=== PATIENT | male | born 1945 | race Caucasian/White ===

== ENCOUNTER 2021-04-07 08:50 | Outpatient (REF) | payer MEDICARE, SELFPAY ==
[2021-04-07 11:10] LABS: MANUAL DIFF FLAG NO
[2021-04-07 11:28] LABS: Basophils Absolute Auto 0.1 X10*3/uL (0.0-0.2); Basophils Percent Auto 0.6 % (0-2); Eosinophils Absolute Auto 0.2 X10*3/uL (0.0-0.4); Hemoglobin 15.1 g/dl (14.0-18.0); Imm Gran Abs Auto 0.04 X10*3/uL (0.00-0.03); Imm Gran Pct Auto 0.5 % (0.0-0.4); Lymphocytes Absolute Auto 1.8 X10*3/uL (1.2-4.9); Lymphocytes Percent Auto 23.3 % (20-40); Mean Corpuscular HGB Conc 33.6 g/dl (31.0-36.0); Mean Corpuscular Hemoglobin 31.9 pg (27.0-33.0); Mean Corpuscular Volume 95.1 fL (80-98); Mean Platelet Volume 9.4 fL (9.4-12.4); Monocytes Absolute Auto 0.6 X10*3/uL (0.1-1.2); Monocytes Percent Auto 7.3 % (2-11); Neutrophils Absolute Auto 5.2 X10*3/uL (2.0-8.3); Neutrophils Percent Auto 66.3 % (45-73); Platelet Count 173 X10*3/uL (160-400); Red Blood Count 4.73 X10*6/uL (4.60-5.80); Red Cell Distribution Width 12.6 % (11.0-16.0); White Blood Count 7.8 X10*3/uL (4.8-10.8)
[2021-04-07 12:12] LABS: Alanine Aminotransferase 27 U/L (0-40); Albumin Level 4.4 g/dL (3.5-5.0); Alkaline Phosphatase 79 U/L (39-117); Anion Gap 14 (12-20); Aspartate Amino Transferase 22 U/L (5-37); Bilirubin Total 1.2 mg/dL (0.0-1.0); Blood Urea Nitrogen 17 mg/dL (9-16); Carbon Dioxide 23 mmol/L (22-29); Chloride 107 mmol/L (96-108); Cholesterol 137 mg/dL; Estimated Glomerular Filt Rate > 60; Glucose Fasting 105 mg/dL (60-99); HDL Cholesterol 44 mg/dL; LDL Cholesterol Calculated 78 mg/dl; Potassium 4.3 mmol/L (3.3-5.1); Sodium 140 mmol/L (135-145); Total Protein 6.5 g/dL (6.5-8.0); Triglycerides 77 mg/dL
[2021-04-07 12:35] LABS: Prostate Specific Antigen 3.02 ng/mL (<0.05-4.0)
== END 2021-04-07 08:51 | disposition home or self-care (01) ==
LOC: HO.HMGCLDS 08:50
PROVIDERS: PCP Internal Medicine; Visit Provider Internal Medicine
DX: Z12.5 Encounter for screening for malignant neoplasm of prostate (principal); I10 Essential (primary) hypertension; E78.00 Pure hypercholesterolemia, unspecified; N40.0 Benign prostatic hyperplasia without lower urinary tract symptoms; I34.1 Nonrheumatic mitral (valve) prolapse
CPT/HCPCS: 36415; 80053; 80061; 84153; 85025

== ENCOUNTER 2022-05-03 07:31 | Outpatient (REF) | payer MEDICARE, SELFPAY ==
[2022-05-03 11:28] LABS: MANUAL DIFF FLAG NO
[2022-05-03 11:32] LABS: Basophils Absolute Auto 0.1 X10*3/uL (0.0-0.2); Basophils Percent Auto 0.9 % (0-2); Eosinophils Absolute Auto 0.1 X10*3/uL (0.0-0.4); Eosinophils Percent Auto 1.9 % (0-4); Hematocrit 42.9 % (42.0-52.0); Hemoglobin 14.7 g/dl (14.0-18.0); Imm Gran Abs Auto 0.03 X10*3/uL (0.00-0.03); Imm Gran Pct Auto 0.4 % (0.0-0.4); Lymphocytes Absolute Auto 1.9 X10*3/uL (1.2-4.9); Lymphocytes Percent Auto 25.1 % (20-40); Mean Corpuscular HGB Conc 34.3 g/dl (31.0-36.0); Mean Corpuscular Hemoglobin 32.6 pg (27.0-33.0); Mean Corpuscular Volume 95.1 fL (80.0-98.0); Mean Platelet Volume 9.3 fL (9.4-12.4); Monocytes Absolute Auto 0.7 X10*3/uL (0.1-1.2); Monocytes Percent Auto 8.9 % (2-11); Neutrophils Absolute Auto 4.7 x10*3/uL (2.0-8.3); Neutrophils Percent Auto 62.8 % (45-73); Platelet Count 181 X10*3/uL (160-400); Red Blood Count 4.51 X10*6/uL (4.60-5.80); Red Cell Distribution Width 12.9 % (11.0-16.0); White Blood Count 7.5 X10*3/uL (4.8-10.8)
[2022-05-03 11:43] LABS: Alanine Aminotransferase 26 U/L (0-40); Albumin Level 4.5 g/dL (3.5-5.0); Alkaline Phosphatase 76 U/L (39-117); Anion Gap 14 (12-20); Aspartate Amino Transferase 23 U/L (5-37); Bilirubin Total 1.6 mg/dL (0.0-1.0); Blood Urea Nitrogen 17 mg/dL (9-16); Calcium 8.9 mg/dL (8.4-10.2); Carbon Dioxide 25 mmol/L (22-29); Chloride 106 mmol/L (96-108); Cholesterol 154 mg/dL; Estimated Glomerular Filt Rate > 60; Glucose Fasting 113 mg/dL (60-99); HDL Cholesterol 42 mg/dL; LDL Cholesterol Calculated 90 mg/dl; Potassium 4.2 mmol/L (3.3-5.1); Sodium 141 mmol/L (135-145); Total Protein 6.6 g/dL (6.5-8.0); Triglycerides 111 mg/dL; Uric Acid 6.3 mg/dL (3.4-7.0)
[2022-05-03 12:12] LABS: Prostate Specific Antigen Scr 2.65 ng/mL (<0.05-4.0)
== END 2022-05-03 07:32 | disposition home or self-care (01) ==
LOC: HO.HMGCLDS 07:31
PROVIDERS: PCP Internal Medicine; Visit Provider Internal Medicine
DX: Z12.5 Encounter for screening for malignant neoplasm of prostate (principal); N40.0 Benign prostatic hyperplasia without lower urinary tract symptoms; E78.00 Pure hypercholesterolemia, unspecified; M10.9 Gout, unspecified
CPT/HCPCS: 36415; 80053; 80061; 84153; 84550; 85025

== ENCOUNTER 2022-11-02 12:29 | Outpatient (REF) | payer MEDICARE, SELFPAY ==
--- NOTE | ~2022-11-02 | XR_ITS ---
EXAMINATION: XR foot RT min 3V CLINICAL INFORMATION: Pain COMPARISON: None TECHNIQUE: 3 views of the foot FINDINGS: No fracture or dislocation. Joint spaces are maintained. Plantar calcaneal spurring, Achilles tendon enthesopathy, and Blu deformity with thickening of the Achilles tendon at its insertion suggesting tendinosis. Atherosclerotic vascular calcification. Trace tibiotalar effusion. XR/XR foot RT min 3V IMPRESSION: Plantar calcaneal spurring, Achilles tendon enthesopathy, and Blu deformity with thickening of the Achilles tendon at its insertion suggesting tendinosis. Trace tibiotalar joint effusion.
[2022-11-02 14:23] LABS: Anion Gap 15 (12-20); Blood Urea Nitrogen 19 mg/dL (9-16); Calcium 9.6 mg/dL (8.4-10.2); Carbon Dioxide 24 mmol/L (22-29); Chloride 105 mmol/L (96-108); Estimated Glomerular Filt Rate > 60; Glucose Random 87 mg/dL (60-115); Potassium 4.6 mmol/L (3.3-5.1); Sodium 139 mmol/L (135-145)
== END 2022-11-02 12:30 | disposition home or self-care (01) ==
LOC: HO.10HDL 12:29
PROVIDERS: Visit Provider Internal Medicine
DX: I10 Essential (primary) hypertension (principal); E78.00 Pure hypercholesterolemia, unspecified; M79.641 Pain in right hand
CPT/HCPCS: 36415; 73630; 80048

== ENCOUNTER 2022-12-08 09:44 | Outpatient (REF) | payer MEDICARE, SELFPAY ==
--- NOTE | ~2022-12-08 | MR_ITS ---
EXAMINATION: MR BRAIN WITH AND WITHOUT CONTRAST CLINICAL INFORMATION: Diplopia, rule out lacunar infarct COMPARISON: None. TECHNIQUE: MRI of the brain was obtained using routine sequences before and following administration of intravenous contrast. A total of 10 mL of Gadavist was administered intravenously. FINDINGS: No acute infarct. Punctate susceptibility and the left centrum semiovale, likely a chronic microhemorrhage. Additional larger focus of susceptibility within the anterior left temporal lobe with subtle corresponding hypointensity on T1 and T2-weighted sequences with a questionable faint T1 hyperintense rim, may reflect a cavernoma. No vasogenic edema to suggest recent hemorrhage. No extra-axial fluid collection. Moderate generalized parenchymal volume loss. Patchy T2 hyperintense foci within the subcortical and periventricular white matter are nonspecific but most suggestive of mild to moderate chronic microangiopathy. No abnormal intraparenchymal or leptomeningeal enhancement. No significant mass effect or herniation pattern. Normal enhancement of the dural venous sinuses. The intradural right vertebral artery exerts mass effect with flattening along the right ventrolateral medulla. Normal appearance of the midline structures. Ovoid T2 hyperintense, enhancing lesion within the right medial intraconal orbit measuring 9 x 4 mm, contiguous with a curvilinear vascular structure, most compatible with a venous varix. Rightward nasal septal deviation with a rightward bony spur impinging on the base of the right inferior nasal turbinate. The paranasal sinuses and mastoids are well aerated. Well-corticated osseous erosion along the ventral surface of the odontoid process inferior to anterior arch of C1 with retrodental ligamentous hypertrophy partially effacing the ventral CSF however without mass effect on the cervicomedullary junction. Moderate for C4-C5 discogenic disease and partially imaged cervical spondylosis, notably at C4-C5 where there is at least mild spinal canal stenosis and likely mass effect along the ventral cord. MR/MR head/brain wo/w con IMPRESSION: 1. No acute infarct, as clinically queried. 2. Moderate volume loss and moderate chronic microangiopathy. 3. 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 4. Moderate for C4-C5 discogenic disease and partially imaged cervical spondylosis, notably at C4-C5 where there is at least mild spinal canal stenosis and likely mass effect along the ventral cord. Findings may be further assessed with cervical spine MRI if there is referrable myelopathy.
== END 2022-12-08 09:45 | disposition home or self-care (01) ==
LOC: HO.MRI 09:44
PROVIDERS: PCP Internal Medicine; Visit Provider Internal Medicine
DX: H53.2 Diplopia (principal)
CPT/HCPCS: 70553; A9585

== ENCOUNTER 2023-02-21 12:15 | Outpatient (REF) | payer MEDICARE, SELFPAY ==
--- NOTE | ~2023-02-21 | XR_ITS ---
EXAMINATION: XR CHEST CLINICAL INFORMATION: Reason for Exam HTN COMPARISON: Chest radiograph 04/17/2017 TECHNIQUE: 2 views of the chest FINDINGS: Lines and tubes: None. Clear lungs. No pleural effusion. No pneumothorax. Normal cardiomediastinal silhouette. XR/XR chest 2V IMPRESSION: * Clear lungs.
[2023-02-21 12:30] LABS: MANUAL DIFF FLAG NO
[2023-02-21 13:54] LABS: Basophils Absolute Auto 0.1 X10*3/uL (0.0-0.2); Basophils Percent Auto 0.9 % (0-2); Eosinophils Absolute Auto 0.2 X10*3/uL (0.0-0.4); Eosinophils Percent Auto 1.7 % (0-4); Hematocrit 43.2 % (42.0-52.0); Hemoglobin 14.3 g/dl (14.0-18.0); Imm Gran Abs Auto 0.04 X10*3/uL (0.00-0.03); Imm Gran Pct Auto 0.4 % (0.0-0.4); Lymphocytes Absolute Auto 1.7 X10*3/uL (1.2-4.9); Lymphocytes Percent Auto 18.8 % (20-40); Mean Corpuscular HGB Conc 33.1 g/dl (31.0-36.0); Mean Corpuscular Hemoglobin 31.4 pg (27.0-33.0); Mean Corpuscular Volume 94.9 fL (80.0-98.0); Mean Platelet Volume 9.1 fL (9.4-12.4); Monocytes Absolute Auto 0.9 X10*3/uL (0.1-1.2); Monocytes Percent Auto 9.7 % (2-11); Neutrophils Absolute Auto 6.3 x10*3/uL (2.0-8.3); Neutrophils Percent Auto 68.5 % (45-73); Platelet Count 189 X10*3/uL (160-400); Red Blood Count 4.55 X10*6/uL (4.60-5.80); Red Cell Distribution Width 12.8 % (11.0-16.0); White Blood Count 9.2 X10*3/uL (4.8-10.8)
[2023-02-21 14:28] LABS: Alanine Aminotransferase 31 U/L (0-40); Albumin Level 4.4 g/dL (3.5-5.0); Alkaline Phosphatase 90 U/L (39-117); Anion Gap 14 (12-20); Aspartate Amino Transferase 23 U/L (5-37); Bilirubin Total 1.2 mg/dL (0.0-1.0); Blood Urea Nitrogen 16 mg/dL (9-16); Calcium 9.6 mg/dL (8.4-10.2); Carbon Dioxide 27 mmol/L (22-29); Chloride 104 mmol/L (96-108); Estimated Glomerular Filt Rate > 60; Glucose Random 90 mg/dL (60-115); Potassium 4.4 mmol/L (3.3-5.1); Sodium 141 mmol/L (135-145); Total Protein 6.7 g/dL (6.5-8.0); Uric Acid 5.1 mg/dL (3.4-7.0)
[2023-02-21 14:46] LABS: Erythrocyte Sedimentation Rate 7 MM/HR (0-15)
== END 2023-02-21 12:16 | disposition home or self-care (01) ==
LOC: HO.XRAY 12:15
PROVIDERS: PCP Internal Medicine; Visit Provider Internal Medicine
DX: R60.0 Localized edema (principal); I10 Essential (primary) hypertension; M79.641 Pain in right hand
CPT/HCPCS: 36415; 71046; 80053; 84550; 85025; 85652; 86140

== ENCOUNTER 2023-03-07 09:45 | Outpatient (REF) | payer MEDICARE, SELFPAY ==
--- NOTE | ~2023-03-07 | XR_ITS ---
EXAMINATION: XR HAND, RIGHT CLINICAL INFORMATION: Pain COMPARISON: None available. TECHNIQUE: PA, lateral, and oblique views of the right hand. FINDINGS: Visualized portion of the distal radius and ulna demonstrate no fracture. Carpal rows are maintained. No carpal bone fracture. Mild degenerative changes of the first carpal metacarpal joint. No metacarpal or phalangeal fracture. Mild degenerative changes of scattered IP joints including some cystic changes involving the second, third and fourth DIP joints. No focal soft tissue swelling. No radiopaque foreign body. XR/XR hand RT min 3V IMPRESSION: Mild degenerative changes of the right hand. No fracture.
== END 2023-03-07 09:46 | disposition home or self-care (01) ==
LOC: HO.HOSX 09:45
PROVIDERS: Visit Provider Physician Assistant
DX: M79.641 Pain in right hand (principal); M79.642 Pain in left hand; M79.89 Other specified soft tissue disorders; R20.0 Anesthesia of skin; R60.9 Edema, unspecified
CPT/HCPCS: 73130; 99202

== ENCOUNTER 2023-03-09 08:31 | Outpatient (REF) | payer MEDICARE, SELFPAY ==
--- NOTE | 2023-03-09 08:34 | EMG_ITS ---
Right median, ulnar motor, and sensory studies were performed. Right radial sensory studies were performed and paraspinal muscles were tested with a needle. IMPRESSION: 1. [id number] right median neuropathy across carpal tunnel. 2. Mild right ulnar neuropathy across cubital tunnel. MD HILL Kay/BRYONL / [id number]
== END 2023-03-09 08:32 | disposition home or self-care (01) ==
LOC: HO.NEURO 08:31
PROVIDERS: Absent Provider Physician Assistant; PCP Internal Medicine; Visit Provider Internal Medicine
DX: M79.641 Pain in right hand (principal); R20.0 Anesthesia of skin
CPT/HCPCS: 95886; 95909

== ENCOUNTER 2023-03-22 14:15 | Outpatient (REF) | payer MEDICARE, SELFPAY ==
[2023-03-22 16:14] LABS: Rheumatoid Factor < 13.0 IU/mL (<15.0)
[2023-03-24 22:34] LABS: Antibody to SS-A Antigen <1.0 NEG AI (<1.0 NEG); Antibody to SS-B Antigen <1.0 NEG AI (<1.0 NEG); Proteinase 3 PR3 Antibodies <1.0 AI
[2023-03-29 13:14] LABS: Anti Nuclear Antibody Screen POSITIVE (NEGATIVE)
== END 2023-03-22 14:16 | disposition home or self-care (01) ==
LOC: HO.LAB 14:15
PROVIDERS: PCP Internal Medicine; Visit Provider Internal Medicine
DX: R22.9 Localized swelling, mass and lump, unspecified (principal); M10.9 Gout, unspecified
CPT/HCPCS: 36415; 86021; 86038; 86039; 86235; 86431

== ENCOUNTER 2023-04-07 12:50 | Outpatient (AMB) | payer MEDICARE, SELFPAY ==
[2023-04-07 13:04] VITALS: BMI 32.5
--- NOTE | 2023-04-07 13:04 | A.OFFVIS_ITS ---
Intake Vital Signs 04/07/23 13:04 Height 5 ft 9 in Weight 220 lb BMI 32.5 Intake Visit Reasons: OV- Discuss surgery Intake Note: Stefan is a 77 year old right hand dominant male who presents today to discuss bilateral hand carpal tunnel release. Patient complaints of bilateral hand pain numbness, tingling, pain and weakness. Right hand is worse than the left. He is currently taking prednisone, given to him by his PCP which is helping his symptoms. Allergies No Known Allergies Allergy (Unverified 04/07/23 13:04) HPI OV- Discuss surgery HPI Details Stefan is a 77 year old right hand dominant man who presents for a NCS review of his bilateral hand numbness. He also complains of bilateral hand pain & swelling, which is improving on prednisone that his PCP prescribed. He has an appointment to see Rheumatology on 06/19/23. He complains of numbness and tingling in the median nerve distribution of his bilateral hands, R>L.He denies any small finger numbness. He has issues with weakness and has been dropping lightweight objects such as a fork. His symptoms are intermittent, but daily, worse with activities and at night. His numbness is beginning to remain constant. 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 Review of Systems Const All systems reviewed & are unremarkable except as noted in HPI and below Physical Exam Vital Signs: BMI result Body Mass Index 32.5 Const General: cooperative, healthy appearing and no acute distress Orientation/consciousness: patient oriented x3 HEENT Head: Yes normocephalic and Yes atraumatic Eyes EOM: EOMs intact bilaterally Resp Effort & Inspection: normal respiratory effort and able to speak in complete sentences Cardio Jugular venous distension: no JVD Skin General skin exam: turgor normal Rashes: no rashes Neuro General: patient oriented x3 Extrem Other: Evaluation of Right Upper Extremity: The patient is alert, oriented, and in no acute distress Neuro: Dense numbness to the tips of the index and middle fingers. Normal sensation to other digits No thenar or intrinsic wasting Good APB muscle belly firing and good finger cross Vascular: Cap refill brisk ROM: Initially fingers ~2cm from his palm After working on ROM exercises he was able to make a fist and extend all his digits Skin: No lacerations or abrasions. General: No Ecchymosis. No Erythema or evidence of infection. He does not appear to have significant swelling in either of his hands today. Radiographs: 3 views of the right hand from 03/07/23 were reviewed by me today in clinic. They show some basa joint arthritis, DIP joint arthritis, PIP joint arthritis and some small madelin-articular erosions. There are no fractures or dislocations. Nerve Conduction Study: Performed on the right side only IMPRESSION:? 1. Owsh-sx-zikcpafc right median neuropathy across carpal tunnel. 2. Mild right ulnar neuropathy across cubital tunnel. ?? M Aarti Ta MD 03/09/2023 Psych Appearance: grossly normal Affect: normal affect Attitude: cooperative Assessment & Plan Assessment & Plan (1) Carpal tunnel syndrome of right wrist: Code(s): G56.01 - Carpal tunnel syndrome, right upper limb (2) Cubital tunnel syndrome on right: Code(s): G56.21 - Lesion of ulnar nerve, right upper limb (3) Numbness of left hand: Code(s): R20.0 - Anesthesia of skin (4) Bilateral hand swelling: Code(s): M79.89 - Other specified soft tissue disorders (5) Bilateral hand pain: Code(s): M79.641 - Pain in right hand; M79.642 - Pain in left hand (6) Stiffness of joints of both hands: Code(s): M25.641 - Stiffness of right hand, not elsewhere classified; M25.642 - Stiffness of left hand, not elsewhere classified Plan Assessment & Plan: 1. Right Carpal tunnel syndrome, mild-moderate Symptoms intermittent, but daily, worse with activity or at night Some symptomatic improvement now that he is on prednisone Beginning to have constant numbness in the tips of the index and middle fingers I educated him about this condition I discussed treatment options The patient would like to proceed with surgery The risks and benefits of operative treatment were discussed with the patient and the patient wishes to proceed with surgery. These risks include, but are not limited to risk of damage to blood vessels, nerves, tendons, infection, recurrence, incomplete relief of preoperative symptoms, persistent pain, possible need for further surgery and the risks associated with regional blocks and anesthesia. The plan is to take the patient to the operating room sometime in the next few weeks for the following procedures: 1. Right carpal tunnel release, under local All of the preoperative paperwork including the consent was filled out today. All the patient's questions were answered. The patient understands that they will be contacted by our director water and waste services soon to schedule this procedure. He is unavailable to have surgery until April He will talk with his primary care physician about stopping his prednisone before surgery. He denies Diabetes, blood thinners, asthma, heart, lung, kidney issues 2. Right cubital tunnel syndrome, mild He denies any numbness in the ulnar nerve distribution at this time No acute intervention warranted If he develops any symptoms he can follow up to discuss treatment options 3. Bilateral hand stiffness, swelling, and pain Radiographs of the right hand show some madelin-articular erosions which may indicate a possible inflammatory rheumatologic condition, as well as arthritic changes in multiple DIP & PIP joints, as well as the basal joint Does have gout, and while gout can cause periarticular erosions, I think it is less likely to cause generalized swelling of multiple joints I educated him about these conditions His symptoms have been improving with PO Prednisone, 20mg b.i.d which was prescribed by his PCP I demonstrated ROM exercises today in clinic for more than 15 minutes, that he will perform 20x daily I discussed activity modification, he should limit or avoid any activities which cause him pain, including heavy lifting, pinching, and gripping when possible I also discussed using tools to assist him with daily activities, such as an electric can information assurance He has an appointment with Rheumatology on 06/19/23, but I discussed with him speaking with his PCP concerning bloodwork to assess for inflammatory markers 4. Left hand numbness In the median nerve distribution Symptoms intermittent and occasional, worse at night I ordered a NCS for his left side He can follow up when completed for review Scribed for Nikki Mathews MD by Kashif Kraus, medical services coordinator, on 04/07/23 at 1:30 PM, EST. Orders: Orders NE nerve conduction velocity Today R20.0 - Anesthesia of skin, R20.2 - Paresthesia of skin Coding Level of Care Code Est Pt Level 4 (88720) Diagnoses Carpal tunnel syndrome of right wrist G56.01 Cubital tunnel syndrome on right G56.21 Numbness of left hand R20.0 Bilateral hand swelling M79.89 Bilateral hand pain M79.641; M79.642 Stiffness of joints of both hands M25.641; M25.642
== END 2023-04-07 13:59 | disposition home or self-care (01) ==
PROVIDERS: PCP Internal Medicine; Visit Provider Orthopaedic Surgery
DX: G56.01 Carpal tunnel syndrome, right upper limb (principal); G56.21 Lesion of ulnar nerve, right upper limb; R20.0 Anesthesia of skin; M79.89 Other specified soft tissue disorders; M79.641 Pain in right hand; M79.642 Pain in left hand; M25.641 Stiffness of right hand, not elsewhere classified; M25.642 Stiffness of left hand, not elsewhere classified
CPT/HCPCS: 99214

== ENCOUNTER → 2023-04-07 12:50 | Outpatient (BNVA) | payer MEDICARE, SELFPAY | PROVIDERS: PCP Internal Medicine; Visit Provider Orthopaedic Surgery | DX: G56.01 Carpal tunnel syndrome, right upper limb (principal); G56.21 Lesion of ulnar nerve, right upper limb; R20.0 Anesthesia of skin; M79.89 Other specified soft tissue disorders; M79.641 Pain in right hand; M79.642 Pain in left hand; M25.641 Stiffness of right hand, not elsewhere classified; M25.642 Stiffness of left hand, not elsewhere classified | CPT/HCPCS: 99212 ==

== ENCOUNTER 2023-04-27 09:45 | Outpatient (REF) | payer MEDICARE, SELFPAY ==
--- NOTE | 2023-04-27 | EMG_ITS ---
Left radial, sensory, median and ulnar motor and sensory studies were performed and paraspinal muscles were tested with a needle. IMPRESSION: 1. [id number] left median neuropathy across carpal tunnel. 2. Mild left ulnar neuropathy across cubital tunnel. MD HILL Kay/SELINA / [id number]
== END 2023-04-27 09:46 | disposition home or self-care (01) ==
LOC: HO.NEURO 09:45
PROVIDERS: Visit Provider Orthopaedic Surgery
DX: R20.0 Anesthesia of skin (principal); R20.2 Paresthesia of skin
CPT/HCPCS: 95860; 95886; 95907; 95909

== ENCOUNTER 2023-06-01 11:21 | Day surgery (SDC) | payer MEDICARE, SELFPAY ==
--- NOTE | 2023-06-01 10:49 | W.PM.OPN ---
Operative Note Operative Note Date of Service: 06/01/23 Narrative: Preop diagnosis: 1. right Carpal tunnel syndrome Postop diagnosis: same Procedure: 1. right Carpal tunnel release Surgeon: Nikki Mathews MD Anesthesia: local block using 1% lidocaine with epinephrine Findings: Thickened transverse carpal ligament. EBL: Less than 5 mL Specimens: None Complications: None Disposition: Brought to recovery room in stable condition Plan: Follow-up for 10-14 days for wound check and suture removal Indications: The patient is 78 years old, with right carpal tunnel syndrome that has been unresponsive to nonoperative management. The risks and benefits of operative treatment including but not limited to risk of damage to blood vessels, nerves, tendons, infection, persistent pain, persistent symptoms, or possible need for additional surgery were discussed with the patient and the patient wishes to proceed with surgery. Procedure: Once consent was obtained a local block was performed using a combination of 1% lidocaine with epinephrine. The patient was then brought back to the operating suite and placed on the operative table in supine position. The right upper extremity was prepped and draped in a standard surgical fashion. Once assured that we had a good block, a 2.0 cm longitudinal incision was made centered over the carpal tunnel. The incision was made through the skin to the subcutaneous tissues using a #15 blade. Dissection was made down to the level of the transverse carpal ligament with care being taken to protect the palmar cutaneous nerve. Once the transverse carpal ligament was clearly visualized, a longitudinal incision was made in the transverse carpal ligament 1st using a #15 blade, then using tenotomy scissors under direct visualization. Care was taken to look for and protect the motor branch of the median nerve when seen in this area. Once satisfied with our carpal tunnel release the wound was copiously irrigated with normal saline and hemostasis was obtained with a brief period of local pressure. The skin edges were reapproximated with some 5.0 nylon suture material and a sterile dressing was applied. The patient appears to have tolerated the procedure well and with no complications. All digits were well vascularized at the conclusion of the case.
[2023-06-01 13:58] VITALS: BMI 34.0
[2023-06-01 14:01] VITALS: BP 141/63; PULSE 60; RESP 18; TEMP 36.6; O2SAT 96
--- NOTE | 2023-06-01 14:38 | PC.NURSE ---
dr. olivarez aware that patient is currently taking prednisone. okay to proceed.
--- NOTE | 2023-06-01 15:42 | MHC.SHP ---
Pre-Procedural Eval Section A Date of Service: 06/01/23 The patient is an INPATIENT: No Changes since office visit: No Cold of Flu in the past 2 weeks, No New Medical Problems, No Changes in Medication and No Patient answered all questions The History & Physical has been completed within 30 days and I have reviewed it.: Yes Section B Chief Complaint: Carpal tunnel syndrome, left upper limb Allergies: Allergies Allergy/AdvReac Type Severity Reaction Status Date / Time No Known Allergies Allergy Verified 06/01/23 14:05 Plan I have reviewed the history and physical and performed a pertinent physical examination on my patient. No changes have occurred unless specified. Time Spent With Patient Time: Total time managing care of this patient today ____ minutes.
[2023-06-01 16:15] VITALS: BP 141/62; PULSE 56; RESP 16; TEMP 37; O2SAT 96
== END 2023-06-01 16:18 | disposition home or self-care (01) ==
PROVIDERS: PCP Internal Medicine; Visit Provider Orthopaedic Surgery
PROC: (CPT 64721; principal; 2023-06-01 13:10)
DX: G56.01 Carpal tunnel syndrome, right upper limb (principal); R20.0 Anesthesia of skin; R20.2 Paresthesia of skin; M79.89 Other specified soft tissue disorders; M10.9 Gout, unspecified; I10 Essential (primary) hypertension; E78.00 Pure hypercholesterolemia, unspecified
CPT/HCPCS: 64721; J0171

== ENCOUNTER → 2023-06-01 11:21 | Outpatient (BNV) | payer MEDICARE, SELFPAY | PROVIDERS: PCP Internal Medicine; Visit Provider Orthopaedic Surgery | DX: G56.01 Carpal tunnel syndrome, right upper limb (principal) | CPT/HCPCS: 64721 ==

== ENCOUNTER 2023-06-13 14:39 | Outpatient (AMB) | payer MEDICARE, SELFPAY ==
[2023-06-13 15:01] VITALS: BMI 34.0
--- NOTE | 2023-06-13 15:01 | MHC.OFFVIS ---
Intake Vital Signs 06/13/23 15:01 Height 5 ft 9 in Weight 230 lb BMI 34.0 Intake Visit Reasons: PO RT CTR 06/01/23AR Intake Note: Stefan 78 yr old male presents today for his P/O visit for his right hand CTR from 06/01/[address] Mathews. Sutures removed and steri strips applied in office. 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 He reports that he is doing well and is very happy with the surgery. He says he no longer has numbness and tingling in his hand. 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 His surgical wound is healing well with no erythema drainage or evidence of infection. Sutures removed and Steri-Strips applied. He can make a fist and actively extend all of his digits. Sensation is normal to the tips of all digits and cap refill is brisk. Assessment & Plan Assessment & Plan (1) Carpal tunnel syndrome of right wrist: Code(s): G56.01 - Carpal tunnel syndrome, right upper limb (2) Cubital tunnel syndrome on right: Code(s): G56.21 - Lesion of ulnar nerve, right upper limb Plan Assessment and plan: 1. Right carpal tunnel syndrome status post carpal tunnel release Date of surgery 06/01/2023 Postoperatively with normal sensation and good resolution of symptoms. 2. Right cubital tunnel syndrome, mild He denies any problems with numbness and tingling in the small or ring fingers. This is asymptomatic and will be managed conservatively for now. I educated him about the postoperative course. Talked about the importance of activity modification. Is doing well and may follow-up p.r.n.. Coding Level of Care Code Global (74039) Diagnoses Carpal tunnel syndrome of right wrist G56.01 Cubital tunnel syndrome on right G56.21
== END 2023-06-13 15:25 | disposition home or self-care (01) ==
PROVIDERS: PCP Internal Medicine; Visit Provider Orthopaedic Surgery
DX: G56.01 Carpal tunnel syndrome, right upper limb (principal); G56.21 Lesion of ulnar nerve, right upper limb
CPT/HCPCS: 99024

== ENCOUNTER → 2023-06-13 14:39 | Outpatient (BNVA) | payer MEDICARE, SELFPAY | PROVIDERS: PCP Internal Medicine; Visit Provider Orthopaedic Surgery ==

== ENCOUNTER 2023-06-19 10:44 | Outpatient (AMB) | payer MEDICARE, SELFPAY ==
[2023-06-19 10:46] VITALS: BP 108/56; PULSE 51; TEMP 36.3; O2SAT 98; BMI 35.3
--- NOTE | 2023-06-19 10:46 | A.OFFVIS_ITS ---
Intake Vital Signs 06/19/23 10:46 Height 5 ft 9 in Weight 238 lb 12.17 oz BMI 35.3 BP 108/56 L Blood Pressure Location Lt brachial Position Sitting Pulse 51 Pulse Source Pulse Oximeter Temp 97.3 F Temp Source Skin Pulse Oximetry (%) 98 Oxygen Delivery Method Room Air Intake Visit Reasons: Bilat hand pain Intake Note: New patient here for hand pain. c/o kiah wrist pain. 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 The hands have been bothering him for a couple of years. Mostly this was characterized by numbness and tingling in the fingers and pain in the wrists. He did have a right carpal tunnel release done about 3 weeks ago. The numbness in the right hand has improved substantially. He did have an episode of pain last night in the wrists. This was relieved with the dose of Aleve. He does not have any history of serious injury to the hands but did have some hyperextended fingers playing football. He also had a meniscal injury in high school that required 2 surgeries. 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 He has done well after right total knee replacement. He had, about 4 years ago, an attack of painful swelling in the foot attributed to gout. Since then he has been on allopurinol for the last 3 years with no further attacks. [facility] Medical History (Updated 06/19/23 @ 12:25 by Kiran Nogueira MD) High cholesterol HBP (high blood pressure) Gout Surgical History (Updated 06/19/23 @ 11:19 by Kiran Nogueira MD) Hx of carpal tunnel repair Hx of appendectomy History of total right knee replacement Hx of colonoscopy Social History (Updated 06/19/23 @ 10:57 by SIMONE Laird) Household Members: Spouse Alcohol intake: former Patient Tobacco Use Status: Former Tobacco user Current occupational status: retired Current occupation: [employer] Review of Systems Const Details: Negative for appetite change, weight change, fever, chills, malaise and fatigue Eyes Details: Negative for vision change, dry eyes,headaches and dizziness ENT Details: Negative for hearing change, tinnitus, oral ulcer, nose bleeds and oral dryness. Card Details: Occasional ankle edema Negative chest pain, palpitations and syncope Resp Details: Negative for SOB, cough and wheezing GI Details: Nocturia x1 or 2. Negative indigestion/heartburn, nausea, abdominal pain, bowel changes, diarrhea, constipation and bloody stool. Details: Negative for dysuria, hematuria, decreased force/flow and genital discharge Skin/Breast Details: Negative for itching, rash, hives, Raynaud's symptoms, sun sensitivity, and skin cancer Neuro Details: Negative for epilepsy, palsy, stroke, changes in speech, tingling and weakness Psych Details: Negative for anxiety, depression and stress Endo Details: Negative for polyuria and polydypsia Sukhi/Lymph Details: Negative for excessive bruising or bleeding. Physical Exam Vital Signs: Last Vital Signs Temp 97.3 F 06/19/23 10:46 Pulse 51 06/19/23 10:46 BP 108/56 L 06/19/23 10:46 Pulse Ox 98 06/19/23 10:46 Oxygen Delivery Method Room Air 06/19/23 10:46 BMI result Body Mass Index 35.3 APPEARANCE: Patient in no acute distress EYES no redness, pupils equal and reactive to light, eyelids normal EARS: External ear normal, canal clear and tympanic membrane normal. NOSE/SINUS: Airflow through both nares, no nasal discharge, no bleeding THROAT: Oral mucosa moist, no ulcerations NECK: No thyromegaly or masses, no adenopathy, trachea midline. HEART: Regulrar rhythm, S1-S2 heard, no murmurs, rubs or gallops. LUNG: Clear to percussion and auscultation ABD: Normal bowel sounds, no organomegaly, masses or tenderness. EXTREMITIES: No edema, no calf tenderness, normal peripheral pulses. NEURO: Oriented and alert x3. No focal weakness. Reflexes symmetric. Gait normal. SKIN: Some chronic changes of rosacea on the nose. Otherwise no inflammatory or neoplastic lesions. Normal color and turgor. No nail dystrophy JOINT EXAM:.?? Cervical Spine:.? Decreased range of motion without pain; no tenderness. Thoracic Spine:.? No scoliosis.? No tenderness on palpation. Lumbar Spine:.? Alignment normal.? Full range of motion without pain, no tenderness. Chest Wall:.? No tenderness, swelling, increased warmth or erythema. Hands:.? Right: There is slight bony enlargement without tenderness at the thumb IP joint and the 3rd distal IP joint. No areas of soft tissue swelling, triggering, thenar atrophy or sensory loss. Left: Nontender bony enlargement at the thumb IP, the 2nd D IP, and the 3rd PIP. There is no flexor tendon triggering, thenar atrophy or sensory loss. Wrists:.? Flexion and extension is pain-free to 75 degrees with no tenderness or swelling. No redness or warmth. Elbows:. Normal pain-free range of motion without tenderness, swelling, increased warmth or erythema. Shoulders:.?? Full range of motion without pain. No tenderness, weakness, swelling, increased warmth or erythema. Hips:.? Full range of motion without pain. Hip bursa:.? No tenderness. Knees:.?? Right: Pain-free range of motion, the knee replacement scar seems well healed without any instability. Left: Normal pain-free range of motion with mild patellofemoral crepitus. No effusions, tenderness, swelling, increased warmth or erythema.? Ankles:.? Normal pain-free range of motion without tenderness, swelling, increased warmth or erythema. Feet:.? Right: Slight bony enlargement at the 1st MTP joint without tenderness. Elsewhere there is no tenderness, swelling, increased warmth or erythema. The skin envelope is intact with no sensory losses. Left: There is nontender bony enlargement at the 1st MTP, this is a bit more prominent than on the right. He also has some nontender hammertoes at the 2nd and 3rd toes. Other joints have pain-free range of motion without tenderness or swelling. The skin envelope is intact with no sensory loss. Tender points:.? No tenderness to digital palpation at the occiput, trapezius, second rib, lateral epicondyle, knees, greater trochanter and gluteal area bilaterally. ? Results Reviewed Results Reviewed: Laboratory Tests 03/22/23 14:35 Rheumatoid Factor < 13.0 TONIE Titer 2 1:80 H SS-A/Ro Antibody <1.0 NEG SS-B/La Antibody <1.0 NEG Laboratory Tests 02/21/23 12:28 Creatinine 0.87 Uric Acid 5.1 [facility] [address] [place] [address] XRay Report Signed Patient: Stefan Fox MR#: [id number] : 1945 Acct:[id number] Age/Sex: 77 / M ADM Date: 03/07/[address]: Terrie Hurt PA-C Ordering Physician: Terrie Hurt PA-C Date of Service: 03/07/23 Procedure(s): XR hand RT min 3V Accession Number(s): [id number] cc: Terrie Hurt PA-C~ EXAMINATION: XR HAND, RIGHT CLINICAL INFORMATION: Pain COMPARISON: None available. TECHNIQUE: PA, lateral, and oblique views of the right hand. FINDINGS: Visualized portion of the distal radius and ulna demonstrate no fracture. Carpal rows are maintained. No carpal bone fracture. Mild degenerative changes of the first carpal metacarpal joint. No metacarpal or phalangeal fracture. Mild degenerative changes of scattered IP joints including some cystic changes involving the second, third and fourth DIP joints. No focal soft tissue swelling. No radiopaque foreign body. XR/XR hand RT min 3V IMPRESSION: Mild degenerative changes of the right hand. No fracture. Dictated By: Reed Braun MD [address] [address] EMG / Nerve Conduction Report Signed Patient: Stefan Fox : 1945 Acct:[id number] Age/Sex: 78 / M ADM Date: 04/27/23 Ordering Physician: Nikki Mathews MD Date of Service: 04/27/23 Procedure(s): NE electromyogram (EMG); NE nerve conduction velocity Accession Number(s): [id number]; [id number] cc: Nikki Mathews MD~ Left radial, sensory, median and ulnar motor and sensory studies were performed and paraspinal muscles were tested with a needle. IMPRESSION: 1. Wmjq-at-kfqzglnh left median neuropathy across carpal tunnel. 2. Mild left ulnar neuropathy across cubital tunnel. MD GILMER KayK/SELINA / [id number] Dictated By: Olga Ta MD [address] [address] EMG / Nerve Conduction Report Signed Patient: Stefan Fox MR#: [id number] : 1945 Acct:[id number] Age/Sex: 77 / M ADM Date: 03/09/[address]: Raymundo Wu MD Ordering Physician: Raymundo Wu MD; Terrie Hurt PA-C Date of Service: 03/09/23 Procedure(s): NE electromyogram (EMG); NE nerve conduction velocity Accession Number(s): [id number]; [id number] cc: Raymundo Wu MD; Terrie Hurt PA-C~ Right median, ulnar motor, and sensory studies were performed. Right radial sensory studies were performed and paraspinal muscles were tested with a needle. IMPRESSION: 1. Ximk-wl-[id number] right median neuropathy across carpal tunnel. 2. Mild right ulnar neuropathy across cubital tunnel. Shantal Ta MD MZSheldon/MODL / [id number] Dictated By: Olga Ta MD Signed By: <Electronically signed by Olga Ta MD> Assessment & Plan Assessment & Plan (1) Bilateral hand pain: Code(s): M79.641 - Pain in right hand; M79.642 - Pain in left hand (2) Osteoarthritis of hands, bilateral: Code(s): M19.041 - Primary osteoarthritis, right hand; M19.042 - Primary osteoarthritis, left hand (3) Carpal tunnel syndrome, bilateral: Comment: 2022 EMG: Mild to moderate right and [id number] left carpal tunnel syndrome. Mild bilateral cubital tunnel. Right carpal tunnel release May 2023 Code(s): G56.03 - Carpal tunnel syndrome, bilateral upper limbs (4) Gout: Code(s): M10.9 - Gout, unspecified (5) TONIE positive: Comment: 1:80 Code(s): R76.8 - Other specified abnormal immunological findings in serum Plan The patient has a low titer TONIE but no other symptoms or signs to suggest an active autoimmune disease. I suspect this is a false positive. He does have findings in the hands of some osteoarthritis which probably accounts for his intermittent hand and wrist pains. His carpal tunnel symptoms have been treated on the right with surgery and so far have not required intervention on the left. He also has some mild cubital tunnel syndrome on EMG but that again is not symptomatic currently. We talked about symptomatic measures and I gave her some information on the treatment of osteoarthritis. I would suggest the use of ksenia taminophen if he wants to take a pill rather than the naproxen given the better safety profile of acetaminophen. He gives a pretty good history of having had gout attacks in the past. He is now on allopurinol and his most recent uric acid was below 6 so I think the allopurinol should be continued at that dose. He can certainly call us back if he thinks symptoms progress or change in the future. Coding Level of Care Code New Pt Level 3 (43080) Diagnoses Bilateral hand pain M79.641; M79.642 Osteoarthritis of hands, bilateral M19.041; M19.042 Carpal tunnel syndrome, bilateral G56.03 Gout M10.9 TONIE positive R76.8
== END 2023-06-19 12:14 | disposition home or self-care (01) ==
PROVIDERS: PCP Internal Medicine; Visit Provider Internal Medicine Rheumatology
DX: M79.641 Pain in right hand (principal); M79.642 Pain in left hand; M19.041 Primary osteoarthritis, right hand; M19.042 Primary osteoarthritis, left hand; G56.03 Carpal tunnel syndrome, bilateral upper limbs; M10.9 Gout, unspecified; R76.8 Other specified abnormal immunological findings in serum
CPT/HCPCS: 99203

== ENCOUNTER → 2023-06-19 10:44 | Outpatient (BNVA) | payer MEDICARE, SELFPAY | PROVIDERS: PCP Internal Medicine; Visit Provider Internal Medicine Rheumatology ==

== ENCOUNTER 2024-01-18 11:00 | Outpatient (REF) | payer MEDICARE, SELFPAY ==
--- NOTE | ~2024-01-18 | CT_ITS ---
EXAMINATION: CT SOFT TISSUE NECK WITH CONTRAST CLINICAL INFORMATION: Dysphagia, thymic neoplasm COMPARISON: None. TECHNIQUE: Following the administration of 100 mL of Omnipaque 350 intravenous contrast, helical imaging was performed in the axial plane with generation of coronal and sagittal reformatted images. This CT examination was performed using dose optimization techniques as appropriate, variously including the following: *Automated exposure control. *Adjustment of mA and/or kV according to patient size (this includes techniques or standardized protocols for targeted exams where dose is matched to indication/reason for exam; i.e. extremities or head). *Use of iterative reconstruction technique. DLP: 697 mGy-cm. FINDINGS: Nasopharynx/Skull Base: The fat planes at the skull base and the soft tissues of the nasopharynx are within normal limits. Mild polypoid mucosal thickening in the maxillary sinuses. The mastoid air cells are well-aerated. Suprahyoid Neck: Streak artifact from dental amalgam degrades evaluation of the oral cavity/oropharynx. No exophytic mass/lesion is definitively visualized within this constraint. The parotid and submandibular glands are within normal limits Infrahyoid Neck: Suboptimal evaluation secondary to apposed vocal folds. No exophytic mass/lesion is definitively visualized within this constraint. Thyroid: The thyroid is unremarkable without identifiable nodules. Nodes: No significant cervical lymph nodes by CT size criteria. Lung Apices: Please see separately dictated CT scan of the chest for full intrathoracic findings. Vascular Structures:Dominant right vertebral artery. Atherosclerosis at the carotid bulbs without flow-limiting stenosis. Scattered atherosclerosis of the thoracic aorta and proximal great vessels. Osseous Structures: Reversal of the normal cervical lordosis with multilevel degenerative changes of the cervical spine. Other Findings: Limited intracranial evaluation is within normal limits. CT/CT soft tissue neck w IV con IMPRESSION: No exophytic mass/lesion along the aerodigestive tract. No significant lymph nodes by CT size criteria.
--- NOTE | ~2024-01-18 | CT_ITS ---
EXAMINATION: CT CHEST WITH CONTRAST CLINICAL INFORMATION: Dysphagia. Diplopia. COMPARISON: None available. TECHNIQUE: Multidetector volumetric CT imaging of the chest was obtained after the administration of 100 mL of Omnipaque 350 intravenous contrast without immediate adverse reactions. Axial MIP volume rendering provided. Sagittal and coronal reformatted images were obtained. This CT examination was performed using dose optimization techniques as appropriate, variously including the following: *Automated exposure control *Adjustment of mA and/or kV according to patient size (this includes techniques or standardized protocols for targeted exams where dose is matched to indication/reason for exam; i.e. extremities or head) *Use of iterative reconstruction technique DLP: 578 mGy-cm FINDINGS: LUNGS: No focal consolidation. No suspicious pulmonary nodule. Central airways are patent. MEDIASTINUM: Imaged thyroid gland is unremarkable. No bulky axillary, mediastinal or hilar lymphadenopathy. Great vessels are of normal caliber. Heart size is normal. No pericardial effusion. Moderate coronary artery calcifications. PLEURA: No pleural effusion. Right anterior pleural-based lipoma measuring 3.1 x 1.1 cm on image 41 of series 9. UPPER ABDOMEN: No adrenal mass. Scattered hepatic cysts. OSSEOUS STRUCTURES: Severe osteoarthritis of the right shoulder. CT/CT chest w IV con IMPRESSION: No suspicious pulmonary nodule.
[2024-01-18] MEDS: iohexoL 350 MG/ML 100 ML INFUS..BTL IV (12:16)
[2024-01-19 06:20] LABS: Creatinine POC 0.8 mg/dL (0.5-1.4); GFR POC > 60
== END 2024-01-18 11:01 | disposition home or self-care (01) ==
LOC: HO.CT 11:00
PROVIDERS: PCP Internal Medicine; Visit Provider Internal Medicine
DX: G70.00 Myasthenia gravis without (acute) exacerbation (principal); C73 Malignant neoplasm of thyroid gland; R13.10 Dysphagia, unspecified
CPT/HCPCS: 70491; 71260; 82565; Q9967

== ENCOUNTER 2024-02-21 10:18 | Outpatient (REF) | payer MEDICARE, SELFPAY ==
--- NOTE | ~2024-02-21 | MR_ITS ---
MRI OF THE BRAIN WITHOUT IV CONTRAST INDICATION: Diplopia COMPARISON: MRI brain on 12/08/2022. TECHNIQUE: Multiplanar multisequence MR imaging of the brain was obtained without IV contrast. FINDINGS: No acute intracranial hemorrhage or infarct. Unchanged punctate sulci due to artifact in the left centrum semiovale, likely chronic microhemorrhage. Additional larger focus of susceptibility artifact within the anterior left temporal lobe is also unchanged. Scattered and confluent periventricular and deep white matter T2/FLAIR hyperintensities, nonspecific however commonly seen with small vessel ischemic disease. Diffuse prominence of the sulci with associated ex vacuo dilation of the ventricles compatible with global cerebral atrophy. No midline shift or hydrocephalus. No acute extra-axial fluid collections. The osseous structures are unremarkable. The pituitary gland, pineal gland and remaining midline structures are unremarkable. 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 Otherwise, no acute orbital pathology. The paranasal sinuses and mastoid air cells are clear. MR/MR head/brain w con IMPRESSION: -No acute intracranial findings. 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
== END 2024-02-21 10:19 | disposition home or self-care (01) ==
LOC: HO.MRI 10:18
PROVIDERS: PCP Internal Medicine; Visit Provider Internal Medicine
DX: H53.2 Diplopia (principal)
CPT/HCPCS: 70552

== ENCOUNTER 2024-06-26 09:31 | Outpatient (REF) | payer MEDICARE, SELFPAY ==
[2024-06-26 13:43] LABS: MANUAL DIFF FLAG NO
[2024-06-26 13:47] LABS: Appearance Urine Clear; Color Urine Yellow; Glucose Urine UA Negative (Negative); Leukocyte Esterase Urine Negative (Negative); Nitrite Urine Negative (Negative); Specific Gravity - Urine 1.015 (1.005-1.025); Urine Blood Negative (Negative); Urine Ketones Negative (Negative); Urine Protein Negative (Neg-Trace)
[2024-06-26 14:00] LABS: Basophils Absolute Auto 0.1 X10*3/uL (0.0-0.2); Basophils Percent Auto 0.6 % (0-2); Eosinophils Absolute Auto 0.1 X10*3/uL (0.0-0.4); Eosinophils Percent Auto 0.7 % (0-4); Hematocrit 41.7 % (42.0-52.0); Imm Gran Abs Auto 0.07 X10*3/uL (0.00-0.03); Imm Gran Pct Auto 0.7 % (0.0-0.4); Lymphocytes Absolute Auto 2.6 X10*3/uL (1.2-4.9); Lymphocytes Percent Auto 27.2 % (20-40); Mean Corpuscular HGB Conc 33.6 g/dl (31.0-36.0); Mean Corpuscular Hemoglobin 32.3 pg (27.0-33.0); Mean Corpuscular Volume 96.3 fL (80.0-98.0); Monocytes Absolute Auto 0.8 X10*3/uL (0.1-1.2); Monocytes Percent Auto 8.3 % (2-11); Neutrophils Percent Auto 62.5 % (45-73); Platelet Count 188 X10*3/uL (160-400); Red Blood Count 4.33 X10*6/uL (4.60-5.80); Red Cell Distribution Width 12.8 % (11.0-16.0); White Blood Count 9.6 X10*3/uL (4.8-10.8)
[2024-06-26 14:14] LABS: Alanine Aminotransferase 27 U/L (0-40); Albumin Level 4.1 g/dL (3.5-5.0); Alkaline Phosphatase 51 U/L (39-117); Anion Gap 13 (12-20); Aspartate Amino Transferase 19 U/L (5-37); Bilirubin Total 1.2 mg/dL (0.0-1.0); Blood Urea Nitrogen 18 mg/dL (9-16); Calcium 9.2 mg/dL (8.4-10.2); Carbon Dioxide 25 mmol/L (22-29); Chloride 107 mmol/L (96-108); Cholesterol 150 mg/dL (<200); Estimated Glomerular Filt Rate > 60; Glucose Fasting 95 mg/dL (60-99); HDL Cholesterol 54 mg/dL (>40); LDL Cholesterol Calculated 71 mg/dL (<100); Potassium 3.6 mmol/L (3.3-5.1); Sodium 141 mmol/L (135-145); Total Protein 6.1 g/dL (6.5-8.0); Triglycerides 126 mg/dL (<150)
[2024-06-26 14:22] LABS: Prostate Specific Antigen 3.59 ng/mL (<0.05-4.0)
[2024-06-26 14:24] LABS: Estimated Average Glucose 114 mg/dL; Hemoglobin A1C 136.3251 umol/L; Hemoglobin A1c % 5.6 % (<6.0); Total Hemoglobin (HGBA1C) 3587.4422 umol/L
[2024-06-26 14:38] LABS: Creatinine Urine 131.71 mg/dL; Microalbumin Urine < 5.0 mg/L
== END 2024-06-26 09:32 | disposition home or self-care (01) ==
LOC: HO.HMGCLDS 09:31
PROVIDERS: PCP Internal Medicine; Visit Provider Internal Medicine
DX: I10 Essential (primary) hypertension (principal); E78.00 Pure hypercholesterolemia, unspecified; Z12.5 Encounter for screening for malignant neoplasm of prostate; Z13.1 Encounter for screening for diabetes mellitus
CPT/HCPCS: 36415; 80053; 80061; 81003; 82043; 82570; 83036; 84153; 85025

== ENCOUNTER 2025-01-08 14:44 | Outpatient (AMB) | payer MEDICARE, SELFPAY ==
--- NOTE | 2025-01-08 14:48 | A.OFFPC_ITS ---
Vital Signs 01/08/25 14:49 Height 5 ft 9 in Weight 232 lb BMI 34.3 BP 132/70 Blood Pressure Location Lt brachial Position Sitting Pulse 67 Pulse Source Pulse Oximeter Temp 97.9 F Temp Source Axillary Pulse Oximetry (%) 95 Oxygen Delivery Method Room Air Intake Visit Reasons: Routine - see comments Sleeve Maker Required: No Accompanied by: Self / Same As Patient Allergies No Known Allergies Allergy (Verified 01/12/25 08:16) Medication List - Last Reconciled 01/12/25 by Mio Jacob MD allopurinol 300 mg PO DAILY aspirin 81 mg PO DAILY atorvastatin 40 mg PO DAILY metoprolol succinate ER 25 mg PO DAILY omeprazole 20 mg PO DAILY prednisone 20 mg PO DAILY Tobacco use date assessed: 01/08/25 Fall risk assessment: No Falls in past year Last assessed Fall Risk: 01/08/25 Dental Screening Dental Screen Date: 01/08/25 Did you have a dental visit in the last 12 months?: Yes Did you have a dental problem in the last 6 months where you did not have access to dental care?: No PFSH Medical History High cholesterol HBP (high blood pressure) Gout Surgical History Hx of carpal tunnel repair Hx of appendectomy History of total right knee replacement Hx of colonoscopy (~06/19/20) Family History Mother No problems noted. Father No problems noted. Social History Household Members: Spouse Housing: House Alcohol intake: former Patient Tobacco Use Status: Former Tobacco user e-Cigarette/Vaping Use: Former Use service: No Current occupational status: other Current occupation: [employer] Cognitive needs: No Hearing needs: No Vision needs: Yes (rx glasses) Questionnaire PHQ-9 Over the last 2 weeks, how often have you been bothered by any of the following problems? 1. Little interest or pleasure in doing things: not at all 2. Feeling down, depressed, or hopeless: not at all 3. Trouble falling or staying asleep, or sleeping too much: not at all 4. Feeling tired or having little energy: not at all 5. Poor appetite or overeating: not at all 6. Feeling bad about yourself - or that you are a failure or have let yourself or your family down: not at all 7. Trouble concentrating on things, such as reading the newspaper or watching television: not at all 8. Moving or speaking so slowly that other people could have noticed. Or the opposite - being so fidgety or restless that you have been moving around a lot more than usual: not at all 9. Thoughts that you would be better off or of hurting yourself in some way: not at all Total score: 0 Depression Screening Interpretation: Negative Depression Screening Done: Yes Source: Developed by Drs. Karan Fernandez, Shalini Alvarenga, Regis Mancia and colleagues, with an educational henry from [employer]. Thrive Questionnaire Date Thrive assessed: 01/08/25 I am a: Patient Within the past 12 months, did the food you bought not last and you didn't have the money to get more?: Never true Within the past 12 months, did you worry whether your food would run out before you got money to buy more?: Never true Do you have trouble paying for medicines?: No Do you have trouble getting transportation to medical appointments?: No Do you have trouble paying your heating and electricity bill?: No Do you have trouble taking care of your child, family member or friend?: No Do you have trouble with day-to-day activities such as bathing, preparing meals, shopping, managing finances, etc.?: No Are you currently unemployed and looking for a job?: No Are you interested in more education?: No Currently or been in a relationship where the following occur: No concerns r eported THRIVE Score: 0 AUDIT C Alcohol Use Questionnaire (AUDIT-C) 1. How often do you have a drink containing alcohol?: Never 3. How often do you have six or more drinks on one occasion?: Never Total Score: 0 LUPE-7 AMB Questionnaire LUPE-7 Date LUPE - 7 assessed: 01/08/25 Feeling nervous, anxious, or on edge: 0 = Not at all Not being able to stop or control worryin = Not at all Worrying too much about different things: 0 = Not at all Trouble relaxin = Not at all Being so restless that it is hard to sit still: 0 = Not at all Becoming easily annoyed or irritable: 0 = Not at all Feeling afraid as if something awful might happen: 0 = Not at all Total LUPE-7 score (0-4 normal; 5-9 mild; 10-14 moderate; 15-21 severe): 0 Source: Developed by Drs. Karan Fernandez, Shalini Alvarenga, Regis Mancia and colleagues, with an educational henry from [employer]. Physical exam (Primary Care) Vital Signs: Last Vital Signs Temp 97.9 F 01/08/25 14:49 Pulse 67 01/08/25 14:49 BP 132/70 01/08/25 14:49 Pulse Ox 95 01/08/25 14:49 Oxygen Delivery Method Room Air 01/08/25 14:49 Care Plan Goal for BP management: Blood pressure is in range. BMI result Body Mass Index 34.3 BMI Assessment/Plan discussion: High Tobacco/Smoking Status: Tobacco use Status Tobacco use date assessed 01/08/25 01/08/25 14:51 Patient Tobacco Use Status Former Tobacco user 01/08/25 14:51 e-Cigarette/Vaping Use Former Use 01/08/25 14:51 PHQ-9: PHQ-9 Score PHQ-9: Total score 0 01/08/25 15:12 Depression Screening Interpretation: Negative Thrive Assessment: Date of Thrive Assessment Date Thrive assessed 01/08/25 01/08/25 14:51 Currently or been in a relationship where the following occur: No concerns reported Advance Care Planning discussion: Exists, not on file Date of discussion: 01/08/25 Forms completed: Health Care Proxy Time spent: 1-15 minutes, not on file Actual minutes spent: 5 Coding Level of Care Code New Pt Level 4 (53183) Complex EM visit Add On G2211 Diagnoses HBP (high blood pressure) I10 Cough R05.9 Additional Codes Vital Signs *Quality* - Advance Care Planning discussion: Exists, not on file ([id number]) Vital Signs *Quality* - Time spent: 1-15 minutes, not on file ([id number]) Assessment & Plan Assessment & Plan (1) HBP (high blood pressure): Code(s): I10 - Essential (primary) hypertension Category: Medical Plan: Blood pressure is in range. Continue current medications. (2) Cough: Code(s): R05.9 - Cough, unspecified Plan: Chest x-ray has been ordered. Will call with the results of the blood test. Plan History of Present Illness The patient is an 79-year-old male presenting with concerns of a sporadic cough. The cough is not constant but occurs in heavy bouts, with periods of respite. Management with Mucinex has reportedly reduced phlegm production, now notable primarily after eating. The patient has a past diagnosis of myasthenia gravis from November of last year, currently managed with medication by Dr. Murphy, feeling almost entirely improved from this condition. Notably, the patient has experienced easy bruising, likely related to the use of aspirin, known to thin the blood. He is otherwise able to engage in physical activities such as stair climbing, although notices transient sweating episodes with minimal exertion. A recent EKG returned normal, reassuring in terms of cardiovascular status. 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 - Engages in physical work regularly. Review of Systems - Respiratory: Reports sporadic cough and past congestion with reduced phlegm production. - Cardiovascular: Denies shortness of breath; reports transient cold sweat with minor physical exertion. - Musculoskeletal: Reports easy bruising likely secondary to aspirin use. Physical Exam General: Cooperative and healthy appearing Nutritional Appearance: Well nourished Orientation/consciousness: Patient oriented x3 Limitations: No limitations Head: Normal to inspection General: Appearance normal, both eyes and all related structures Neck: Normal visual inspection Chest: Normal palpation of entire chest wall Respiratory: Lungs sound very clear ormal respiratory effort Neurology: Patient oriented x3 Results Plan I plan to proceed with a chest X-ray to evaluate the persisting sporadic cough, though current management with Mucinex appears effective in reducing phlegm. The patient's myasthenia gravis is stable under Dr. Murphy's care, and I recommend continuing with the treatment regimen. Consideration of the risks associated with aspirin use due to easy bruising will be revisited. The patient should monitor for any escalating symptoms. Recent cardiac evaluations are normal, so further cardiac testing is not immediately necessary. Patient was informed and verbally consented to the use of an ambient scribe for clinic note documentation during this visit. Discussion Notes I discussed with the patient the importance of a chest X-ray to rule out any lung pathologies contributing to his cough. We reviewed the management of myasthenia gravis, and the patient expressed satisfaction with his current treatment under Dr. Murphy. We considered the bruising effect of aspirin and discussed the potential for temporary discontinuation should bruise severity increase. I reiterated the normal results of his recent EKG and reassured him of his current cardiac health. We talked about monitoring his cough and recognizing symptoms of worsening respiratory distress that would require prompt follow-up. Patient Instructions - Continue taking prescribed medications for myasthenia gravis. - Obtain a chest X-ray for further evaluation of the cough. - Monitor for any increase in cough severity or development of shortness of breath. - Observe for increased bruising and discuss aspirin use if bruising worsens. - Maintain current physical activity levels as tolerated. Orders: Orders Complete Blood Count no Diff 01/08/25 I10 - Essential (primary) hypertension Lipid Panel 01/08/25 I10 - Essential (primary) hypertension UA and rflx microscopic 01/08/25 I10 - Essential (primary) hypertension XR chest 2V 01/08/25 R05.9 - Cough, unspecified Basic Metabolic Panel 01/08/25 I10 - Essential (primary) hypertension Thyroid Stimulating Hormone 01/08/25 I10 - Essential (primary) hypertension
[2025-01-08 14:49] VITALS: BP 132/70; PULSE 67; TEMP 36.6; O2SAT 95; BMI 34.3
--- OUTSIDE RECORDS SUMMARY | 2025-01-08 17:29 | XMS_ITS ---
Author Organization [facility] Address [address] [place] [address] Care Team Providers Care Wireless Consultant Name Role Phone Raymundo Wu MD Primary Care Provider Beatris Vivar Unavailable [phone] Allergies Allergen (clinical drug ingredient) Drug/Non Drug Allergy documented on EMR Reaction Allergy Type Onset Date Status shrimp allergenic extract Shrimp (Diagnostic) gout Drug Allergy Active REASON FOR VISIT Pcp-07/01/24, Heel pain Medications Medication SIG (Take, Route, Frequency, Duration) Notes Start Date End Date Status Allopurinol 300 MG 1 tablet Orally Once a day Active predniSONE 20 MG 1 tablet Orally Once a day Active Atorvastatin Calcium 10 MG 1 tablet Oral ly Once a day Active Aspirin Active Metoprolol & Diet Manage Prod Active Voltaren 1 % as directed to right heel 4x daily 07/16/2024 Active Omeprazole Active Social History Tobacco Use: Social History Observation Description Date Details (start date - stop date) Never Smoker NA - NA Tobacco Use/Smoking Question Answer Notes Are you a: nonsmoker Additional Findings: Tobacco Non-User Current no n-smoker Alcohol Screen Question Answer Notes Did you have a drink containing alcohol in the p ast year? No Points 0 Interpretation Negative Tobacco use other than smoking: Question Answer Notes Are you an other tobacco user? 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 Assessments Encounter Date Diagnosis (ICD Code) Assessment Notes Treatment Notes Treatment Clinical Notes Section Notes 07/16/2024 Achilles tendinitis of right lower extremity (ICD-10 - M76.61) Patient Educated with: HEEL CORD STRETCHES.pdf (HEEL CORD STRETCHES.pdf) Patient Educated with: RICE THERAPY.pdf (RICE THERAPY.pdf) 07/16/2024 Pain of right heel (ICD-10 - M79.671) 07/16/2024 Exostosis of right posterior calcaneus (ICD-10 - M77.31) 07/16/2024 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.61) 07/16/2024 Short Achilles tendon (acquired), right ankle (ICD-10 - M67.01) Plan Of Treatment Medication Medication Name Sig Start Date Stop Date Notes Voltaren 1 % as directed to right heel 4x daily 07/16/2024 Treatment Notes Assessment Notes Achilles tendinitis of right lower extre mity Patient Educated with: HEEL CORD STRETCHES.pdf (HEEL CORD STRETCHES.pdf) Patient Educated with: RICE THERAPY.pdf (RICE THERAPY.pdf) Pending Test Test Name Order Date X ray : Foot, right 3V 07/16/2024 Next Appt Details Follow Up: 2 Months, Reason: Progress Notes * Stefan FOX SDOB:[birth year] (79 yo M)Acc No.[id number]:07/16/2024 Progress Notes Patient:?Stefan Fox Provider:?Beatris Dykes DPM :1945???Age:79 Y???Sex:Male Jose Guadalupe e:07/16/2024 Address:[address] [place] [address] [id number] Pcp:Raymundo Wu MD Subjective: * Chief Complaints: * ???Pcp-07/01/24eel pain * HPI: ???Heel pain:?Location:?Back of heel, RIGHT.?Duration:?several months .?Course:?worse.?Aggravated:?standing, walking, walking first thing in the morning/after rest.?Treatments:?rest/alter normal daily activity.? * ROS:?General/Constitutional:?Nausea?denies.?Vomiting?denies.?Hunger Thirst?denies.?Loss appetite?denies.?Chills?denies.?Fatigue?denies.?Fever?denies.?Night Sweats?denies.?Unexplained weight loss?denies.?Unexplained weight gain?denies.?HEENTM:?Dentures?denies.?Dizziness?denies.?Glasses/contacts?admits.?Retinopathy?de nies.?Blurred/double vision?admits.?TMJ?denies.?Discharge/drainage?denies.?Implants?denies.?Sore throat?denies.?Dental implants?admits.?Hard of hearing ?denies.?Difficulty chewing/swallowing/speaking?denies.?Nose bleeds?denies.?Sore mouth?denies.?Respiratory:?On Oxygen?denies.?Pneumonia/pleurisy?denies.?Bronchitis?denies.?Emphysema?denies.?C oughing?denies.?Cough blood?denies.?Shortness of breath?denies.?Wheezing?denies.?Cardiovascular:?Pacemaker?denies.?MVP?denies.?WPW?denies.?CHF?denies.?Heart attack?denies.?Septal defect?denies.?Rapid beat?denies.?Chest pain ?denies.?Atrial Fib.?denies.?Murmur/Palpitations?denies.?Gastrointestinal:?Hemorrhoids?denies.?Stomach/Abdominal pain?denies.?Dark blood stool?denies.?Irritable bowel ?denies.?Constipation?denies.?Diarrhea?denies.?Hematology:?Swelling?denies.?Clots?denies.?Varicose Veins?denies.?Bruising?denies.?Bleeding problem?denies.?Genitourinary:?Blood urine?denies.?Frequent/Painfu/urination/bladder control?denies.?Kidney stones?denies.?Infection (UTI)?denies.?Nephropathy?denies.?sex trans dis (STD)?denies.?Prostate?denies.?Musculoskeletal:?Hammertoes?denies.?Bunions?denies.?Back Pain?admits.?Muscle Cramps/ Resting?denies.?Muscle cramps / walking?denies.?Generalized aches and pains?denies.?Weakness?denies.?Integ.:?Sky?denies.?Scars?admits.?Corns/calluses?denies.?Ingrown nails?denies.?Painful nails?denies.?Open Sores?denies.?Rashes?denies.?Neurologic:?Difficulty sleeping?denies.?Brain disorder?denies.?Numbness?denies.?Balance trouble?denies.?Confusion?denies.?Fainting/blackouts?denies.?Tingling?denies.?Tr emors?denies.? * Medical History:? * Surgical History:?tonsillect haile 1951appendectomy 1953knee replacement 2013cyst removal 2020 * Hospitalization/Major Diagno stic Procedure:?Denies Past Hospitalization * Family History:?Mother: dece ased, cancer, diagnosed with Other malignant neoplasm of unspecified site.?Father: , heart attack, diagnosed with Unspecified heart disease.? * Social History:?Tobacco Use:?Tobacco Use/Smoking?Are you a:?nonsmoker ?Additional Findings: Tobacco Non-User?Current non-smoker ?Tobacco use other than smoking?Are you an other tobacco user??No ???Drugs/Alcohol:?Drugs?Have you used drugs other than those for medical reasons in the past 12 months??No ?Alcohol Screen?Did you have a drink containing alcohol in the past year??No ?Points?0 ?Interpretation?Negative ???Miscellaneous:?Caffeine: yes, frequency:. ?Children: yes, 2. ?Exercise: yes, horseback riding/. ?Marital status: . 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 * Medications:?TakingOmeprazol e predniSONE 20 MG Tablet 1 tablet Orally Once a dayAllopurinol 300 MG Tablet 1 tablet Orally Once a dayAspirin Atorvastatin Calcium 10 MG Tablet 1 tablet Orally Once a dayMetoprolol & Diet Manage Prod Medication List reviewed and reconciled with the patientTaking Omeprazole Taking predniSONE 20 MG Tablet 1 tablet Orally Once a dayTaking Allopurinol 300 MG Tablet 1 tablet Orally Once a dayTaking Aspirin Taking Atorvastatin Calcium 10 MG Tablet 1 tablet Orally Once a dayTaking Metoprolol & Diet Manage Prod Medication List reviewed and reconciled with the patient * Allergies:?Shrimp (Diagnosti c): goutyes[Allergies Verified] Objective: * Vitals:?Ht: 5ft9in, Wt: 220, BMI: 32.48, Shoe size: 12, Ht-cm: 175.26 cm, Wt-k.79 kg. * Examination: ???General Examination: ?GENERAL APPEARANCE:?Reveals a pleasant, alert, well-nourished, well- developed, well hydrated individual, who demonstrates proper attention to hygiene/body habitus, and is in no acute distress, Pt serves as own?historian for office visit today.?ORIENTED:?person, place, and time.?Orthopedic: ?MUSCLE STRENGTH:?5/5 all groups in a symmetrical fashion , B/L.?GAIT ABNORMALITY:?antalgic.?FOOT MORPHOLOGY:? Decreased Ankle joint dorsiflexion ROM, knee extended.?Heel Pain: ?INSPECTION REVEALS:? Pain on palpation to Achilles tendon/bursa with inflammation and swelling present, Pain on palpation to Posterior Superior Aspect Calcaneus, Prominent posterior and posterior/superior heel present, RIGHT.?Neurological: ?SENSORY:?Neurological exam reveals intact sensorium, pain sensation normal, vibration sensation intact, pinprick sensation is normal in the lower extremities, Pt denies, anesthesia, burning, paresthesia, tingling, B/L.?DEEP TENDON REFLEXES:?Deferred on symptomatic extremity due to discomfort, Achilles, 2/4, B/L.?Vascular: ?DP PULSES(B):?2/4, B/L.?PT PULSES(B):?2/4, B/L.?CAPILLARY FILL TIME:?immediate, all digits, B/L.?TROPHIC CONDITION-TEXTURE/ELASTICITY/TURGOR/HAIR GROWTH(B):?normal, B/L.?TEMPERTURE GRADIENT(C):?warm to cool, proximal to distal, B/L.?PIGMENTATION:?normal, B/L.?EDEMA(C):?absent, B/L.?Dermatologic: ?SKIN FINDINGS:?Skin exam reveals normal texture, elasticity, and turgor. There are no masses. The interspaces are clear.?X-Rays - IMAGING REPORT: ?Clinical Indication(s):? Evaluate for Fracture, Evaluate Biomechanical Deformity.?Views:? 3 views of Foot, LAT, LO, MO, RIGHT.?Findings:?normal bone and soft tissue density consistent for patients age and sex, increase in soft tissue contour and density at the symptomatic site, navicular/cuneiform plantar subluxation with anterior cyma line, positive retrocalcaneal exostosis, no coalitions identified, calcifications present within achilles tendon.?Fracture:?Negative fractures identified.? Assessment: * Assessment: 1.?Pain of right heel - M79. 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 Plan: * Treatment: 2.?Achilles tendinitis of ri ght lower extremity? Start Voltaren Gel, 1 %, as directed, to right heel, 4x daily, 150 Gram, Refills 2.?? Notes: Patient Educated with: HEEL CORD STRETCHES.pdf (HEEL CORD STRETCHES.pdf) Patient Educated with: RICE THERAPY.pdf (RICE THERAPY.pdf)?? * Procedure Codes:?13424 X-RAY EXAM OF RIGHT FOOT 3V, Modifiers: 26 , RT * Preventive Medicine:? ??Counseling:?Discussion:?-04: Office or other outpatient visit for the evaluation and management of a new patient, which required a medically appropriate history and/or examination and MODERATE level of DECISION MAKING for: 1 OR MORE CHRONIC PROBLEM(S) THATS WORSENING, 2 STABLE CHRONIC PROBLEMS, A NEWLY DIAGNOSED PROBLEM WITH UNCERTAIN PROGNOSIS, AN ACUTE COMPLICATED INJURY WITH MULTIPLE TREATMENT OPTIONS, OR AN ACUTE PROBLEM WITH ACCOMPANYING SYSTEMIC SYMPTOMS, THAT POSE(S) A MODERATE RISK OF MORBIDITY. THIS CONDITION MAY ALSO INCLUDE RX DRUG MANAGEMENT, OR A DECISON FOR MINOR SURGERY. The visit on the day of the encounter encompassed interpreting the data and educating the patient as to the nature of their condition, treatment options available according to their individual PMH, meds, allergies, and overall health/living conditions, as well as any potential risks or complications that may occur from a failure to adhere to, and participate in, the recommended course of therapy. The discussion included a complete verbal, and/or written explanation of the examination results, any x-rays taken, the proposed diagnosis, and outline of the treatment plan. A schedule for future care needs was also explained. The patient verbalized an understanding of the instructions at this time and agreed to be an active participant in their treatment. If the patient should think of any questions or concerns after the visit, I have encouraged the patient to call the office.?Heel pain:?ACHILLES: I explained to the patient the possible etiologies of Achilles Tendonitis including foot type/shoegear/activity level/exercise routine and the risks/benefits of all the different treatment options for pain including: No treatment at all, Rest, Ice, NSAIDs(only if well tolerated after meals), New/supportive Shoegear, Strappings and Tapings, Stretching exercises, Deep Tissue Massage, Heel cups/cushions, Arch support/shoe inserts, Custom orthoses, Topical analgesics including Aspercream/Voltaren gel, Night splint/AFO Bracing for stiffness, Cast boot with crutches/cane/or walker for assisted ambulation, Physical Therapy, EPAT/ESWT, Interfil injection therapy, as well as surgical Spearfish/Calcanectomy- tendon debridement surgical procedures if needed. Recommendations were made to limit barefoot walking, eliminate wearing nonsupportive shoegear (i.e. flip-flops or sandals, or a shoe with an easily bendable, foldable, or twistable sole) and wear shoegear with a good solid sole, a supportive arch, and plenty of room for an insert/orthotic if necessary. If wearing sandals was required by the patient, we recommended orthopedic sandals such as Orthoheel or Birkenstock even while in the home. If the patient wore heels in the past, we recommended they continue, but eliminate the use of flats. The advantages and disadvantages of each option were discussed and the patients' questions re: shoegear, custom vs prefabricated inserts, activity level, PO vs Topical medications (and their respective potential complications/drug interactions/side effects), and consistency in home treatment regimens for optimal success were answered to their verbally confirmed satisfaction. Literature detailing Achilles Tendonitis and the various treatment options were dispensed and reviewed.?Orthotics:?I explained to the patient the benefits of OT use. I explained that orthoses are medically necessary to decrease the foot pain through proper mechanical control, support of their foot.?P.R.I.C.E.:?The patient was counseled on the use of P.R.I.C.E. and NSAIDS (if well tolerated) to aid in the recovery from their painful condition.?Podiatric Surgery Counseling:?Surgical procedures such as Spearfish vs Exostectomy with Partial calcanectomy and Achilles debridement with use of tendon reanchoring systems were discussed with the patient, including the risks and advantages as well as disadvantages to either not having, or having surgery, the potential surgical outcomes, possible complications unlimited to no improvement of syptoms/infection/excessive scaring/chronic weakness/failure of procedure/chronic pain, the use of IV/Local vs General anesthesia, and the usual post-op course which includes prolongued recuperation consisting of 2-3 months of casting non-partial weightbearing followed by extensive PT. Total return to normal activity may take a year or more. No guarentees were given. Patient questions re: how each procedure is different, different outcomes, and post-op recuperation were reviewed and the patient verbalized that all answers were clearly understood.?Shoe Gear Counseling:?The patient and I reviewed the types of shoes they should be wearing. My recommendation included obtaining a well-fitted shoe with a good supportive, non-foldable nor twistable sole, plenty of toe/room for the forefoot, and proper arch support. Based on todays examination, I recommended the patient look for new shoes, by having their feet professionally measured. We discussed that generally the best time of the day for a shoe fitting is the afternoon. Different shoes types and brands to best match the patients occupation and vocation were discussed. Specific brand selection will be up to the patient, their individual foot condition/deformities, and fit. The patient and I reviewed the standard new shoe break in period by wearing them for a few hours a day while checking for redness or sores as wear time is increased. The patient verbally confirmed to understanding the information discussed.?Stretching Exercises:?Stretching and deep tissue massage exercises for the patients injury/diagnosis were discussed and demonstrated, Handouts were also given.? * Follow Up:?2 Months * Images: * Sign off status: Completed true * Provider:?Beatris Dykes DPM Date:?1 Generated for Igori ng/Gina/eTransmitting on:?01/08/2025 05:28 PM EDT History and Physical Notes * HPI (History of Present Illness) Category Sub-Category Detail Notes Category Not es Heel pain Duration: several months Location: Back of heel, RIGHT Aggravated: standing, walking, w alking first thing in the morning/after rest Course: worse Treatments: rest/alter normal da yennifer activity Examination Category Sub-Category Detail Notes Category Not es Heel Pain INSPECTION REVEALS: Pain on palp ation to Achilles tendon/bursa with inflammation and swelling present, Pain on palpation to Posterior Superior Aspect Calcaneus, Prominent posterior and posterior/superior heel present, RIGHT Neurological SENSORY: Neurological exa m reveals intact sensorium, pain sensation normal, vibration sensation intact, pinprick sensation is normal in the lower extremities, Pt denies, anesthesia, burning, paresthesia, tingling, B/L DEEP TENDON REFLEXES: Deferred on sympto matic extremity due to discomfort , Achilles, 2/4, B/L Dermatologic SKIN FINDINGS: Skin exam reveal s normal texture, elasticity, and turgor. There are no masses. The interspaces are clear Orthopedic GAIT ABNORMALITY: antalgic FOOT MORPHOLOGY: Decreased Ankle join t dorsiflexion ROM, knee extended MUSCLE STRENGTH: 5/5 all groups in a symmetrical fashion , B/L General Examination GENERAL APPEARANCE: Reveals a pleasant, alert, well- nourished, well-developed, well hydrated individual, who demonstrates proper attention to hygiene/body habitus, and is in no acute distress, Pt serves as own historian for office visit today ORIENTED: person, place, and t reese Vascular DP PULSES (B): 2/4, B/L PT PULSES (B): 2/4, B/L CAPILLARY FILL TIME: immediate, all digi ts, B/L TEMPERTURE GRADIENT (C): warm to cool, p roximal to distal, B/L TROPHIC CONDITION-TEXTURE/ELASTICITY/TURGOR/HAIR GROWTH (B): normal, B/L EDEMA (C): absent, B/L PIGMENTATION: normal, B/L X-Rays - IMAGING REPORT Findings: normal b one and soft tissue density consistent for patients age and sex, increase in soft tissue contour and density at the symptomatic site, navicular/cuneiform plantar subluxation with anterior cyma line, positive retrocalcaneal exostosis, no coalitions identified, calcifications present within achilles tendon Fracture: Negative fractures i dentified Views: 3 views of Foot, LAT , LO, MO, RIGHT Clinical Indication(s): Evaluate for Fra cture, Evaluate Biomechanical Deformity
--- OUTSIDE RECORDS SUMMARY | 2025-01-08 17:29 | XMS_ITS ---
Author Organization [facility] ruth [place] Address [address] [facility] [place] [address] Care Team Providers Care Interior Design Program Chair Name Role Phone Raymundo Wu MD Primary Care Provider Beatris Vivar Unavailable [phone] Allergies Allergen (clinical drug ingredient) Drug/Non Drug Allergy documented on EMR Reaction Allergy Type Onset Date Status shrimp allergenic extract Shrimp (Diagnostic) gout Drug Allergy Active REASON FOR VISIT Heel pain Medications Medication SIG (Take, Route, Frequency, Duration) Notes Start Date End Date Status Allopurinol 300 MG 1 tablet Orally Once a day Active Aspirin Active Atorvastatin Calcium 10 MG 1 tablet Oral ly Once a day Active Metoprolol & Diet Manage Prod Active Voltaren 1 % as directed to right heel 4x daily 07/16/2024 Active predniSONE 20 MG 1 tablet Orally Once a day Active Omeprazole Active Social History Tobacco Use: Social History Observation Description Date Details (start date - stop date) Never Smoker NA - NA Tobacco Use/Smoking Question Answer Notes Are you a: nonsmoker Additional Findings: Tobacco Non-User Current no n-smoker Tobacco use other than smoking: Question Answer Notes Are you an other tobacco user? 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 Vital Signs Blood pressure systolic 121 mm Hg 09/26/19 25 Blood pressure diastolic 80 mm Hg 025 Height 5ft9in in 09/26/2024 Weight 230 lbs 09/26/2024 BMI 33.96 kg/m2 09/26/2024 Encounters Encounter Location Date Provider Diagnosis [facility] [address] [place] [address] 09/26/2024 Beatris Dykes Achilles tendinitis of right lower extremity M76.61 ; Pain of right heel M79.671 ; 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 ; Acquired Blu's deformity of right heel M92.61 and Short Achilles tendon (acquired), 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 Assessments Encounter Date Diagnosis (ICD Code) Assessment Notes Treatment Notes Treatment Clinical Notes Section Notes 09/26/2024 Achilles tendinitis of right lower extremity (ICD-10 - M76.61) 09/26/2024 Pain of right heel (ICD-10 - M79.671) 09/26/2024 Exostosis of right posterior calcaneus (ICD-10 - M77.31) 09/26/2024 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.61) 09/26/2024 Short Achilles tendon (acquired), right ankle (ICD-10 - M67.01) Plan Of Treatment Next Appt Details Follow Up: prn, Reason: Progress Notes * MARK Stefan SDOB:[birth year] (79 yo M)Acc No.[id number]:09/26/2024 Progress Note Patient:?Stefan FOX Provider:?Beatris Dykes DPM :1945???Age:79 Y???Sex:Male Jose Guadalupe e:09/26/2024 Address:[address] [place], [place] [id number] Pcp:Raymundo Wu MD Subjective: * Chief Complaints: * ???Heel pain * HPI: ???Heel pain:?Location:?Back of heel, RIGHT.?Duration:?several months .?Course:?improved, resolved.?Treatments:?voltaren gel, stretching exercises?, improved conditon..?Misc:?Patient states he has performed stretching exercises and applied voltaren gel daily and has had a significant improvement in his right heel. He states he feels the bump has decreased in size as well. Patient is very happy with his progress.? * ROS:?General/Constitutional:?Nausea?denies.?Vomiting?denies.?Hunger Thirst?denies.?Loss appetite?denies.?Chills?denies.?Fatigue?denies.?Fever?denies.?Night Sweats?denies.?Unexplained weight loss?denies.?Unexplained [...] than smoking?Are you an other tobacco user??No * Medications:?TakingOmeprazol e predniSONE 20 MG Tablet 1 tablet Orally Once a day Allopurinol 300 MG Tablet 1 tablet Orally Once a day Aspirin Atorvastatin Calcium 10 MG Tablet 1 tablet Orally Once a day Metoprolol & Diet Manage Prod Voltaren 1 % Gel as directed to right heel 4x daily Medication List reviewed and reconciled with the patientTaking Omeprazole Taking predniSONE 20 MG Tablet 1 tablet Orally Once a day Taking Allopurinol 300 MG Tablet 1 tablet Orally Once a day Taking Aspirin Taking Atorvastatin Calcium 10 MG Tablet 1 tablet Orally Once a day Taking Metoprolol & Diet Manage Prod Taking Voltaren 1 % Gel as directed to right heel 4x daily Medication List reviewed and reconciled with the patient * Allergies:?Shrimp (Diagnosti c): goutyes[Allergies Verified] Objective: * Vitals:?Ht: 5ft9in, Wt: 230, BMI: 33.96, Shoe size: 12, BP: 121/80 mm Hg, Ht-cm: 175.26 cm, Wt-k.33 kg. * Examination: ???General Examination: ?GENERAL APPEARANCE:?Reveals a pleasant, alert, well-nourished, well- developed, well hydrated individual, who demonstrates proper attention to hygiene/body habitus, and is in no acute distress, Pt serves as own?historian for office visit today.?ORIENTED:?person, place, and time.?Orthopedic: ?MUSCLE STRENGTH:?5/5 all groups in a symmetrical fashion , B/L.?Heel Pain: ?INSPECTION REVEALS:?NO longer pain on palpation to Achilles tendon/bursa, no evidence of local inflammation, RIGHT.?Neurological: ?SENSORY:?Neurological exam reveals intact sensorium, pain sensation normal, vibration sensation intact, pinprick sensation is normal in the lower extremities, Pt denies, anesthesia, burning, paresthesia, tingling, B/L.?Vascular: ?DP PULSES (B):?2/4, B/L.?PT PULSES (B):?2/4, B/L.?CAPILLARY FILL TIME:?immediate, all digits, B/L.?TROPHIC CONDITION-TEXTURE/ELASTICITY/TURGOR/HAIR GROWTH (B):?normal, B/L.?TEMPERTURE GRADIENT (C):?warm to cool, proximal to distal, B/L.?PIGMENTATION:?normal, B/L.?EDEMA (C):?absent, B/L.?Dermatologic: ?SKIN FINDINGS:?Skin exam reveals normal texture, elasticity, and turgor. There are no masses. The interspaces are clear.? Assessment: * Assessment: 1.?Pain of right heel - M79. 671???2.?Achilles tendinitis of right lower extremity - M76.61 (Primary)???Specify :Acute problem, Uncomplicated (3) Improved???3.?Exostosis of right posterior calcaneus - M77.31???4.?Acquired Blu's deformity of right heel - M92.61???5.?Short Achilles tendon (acquired), right ankle - M67.01??? Plan: * Treatment: * Procedure Codes:? * Preventive Medicine:? ??Counseling:?Discussion:?-12: Office or other outpatient visit for the evaluation and management of an established patient, which required a medically appropriate history and/or examination and STRAIGHTFORWARD level of MEDICAL DECISION MAKING, 1 SELF-LIMITED OR MINOR PROBLEM, MINIMAL- NO AMOUNT/COMPLEXITY OF DATA TO BE REVIEWED/ANALYZED, AND MINIMAL RISK OF COMPLICATION/MORBIDITY. The visit on the day of the [...] encouraged the patient to call the office.?Heel pain:?Given success with Voltaren gel, stretching exercises, continue conservative care. Patient to follow up as needed should symptoms return or new problems arise.?P.R.I.C.E.:?The patient was counseled on the use of P.R.I.C.E. and NSAIDS (if well tolerated) to aid in the recovery from their painful condition.?Stretching Exercises:?Stretching and deep tissue massage exercises for the patients injury/diagnosis were discussed and demonstrated, Handouts were also given.? * Follow Up:?prn * Images: * Sign off status: Completed true * Provider:?Beatris Dykes DPM Date:?0 09/26/2024 Generated for Mignon ontiveros/Gina/Breeitting on:?01/08/2025 05:28 PM EDT History and Physical Notes * HPI (History of Present Illness) Category Sub-Category Detail Notes Category Not es Heel pain Duration: several months Location: Back of heel, RIGHT Course: improved, resolved Treatments: voltaren gel, stretc patricia exercises , improved conditon. Misc: Patient states he hernandez s performed stretching exercises and applied voltaren gel daily and has had a significant improvement in his right heel. He states he feels the bump has decreased in size as well. Patient is very happy with his progress Examination Category Sub-Category Detail Notes Category Not es Heel Pain INSPECTION REVEALS: NO longer pa in on palpation to Achilles tendon/bursa, no evidence of local inflammation, RIGHT Neurological SENSORY: Neurological exa m reveals intact sensorium, pain sensation normal, vibration sensation intact, pinprick sensation is normal in the lower extremities, Pt denies, anesthesia, burning, paresthesia, tingling, B/L DEEP TENDON REFLEXES: Dermatologic SKIN FINDINGS: Skin exam reveal s normal texture, elasticity, and turgor. There are no masses. The interspaces are clear Orthopedic MUSCLE STRENGTH: 5/5 all groups in a symm etrical fashion , B/L General Examination GENERAL APPEARANCE: [...]
--- OUTSIDE RECORDS SUMMARY | 2025-01-08 17:29 | XMS_ITS | Patient Health Record ---
Author Organization [facility] [place] Address [address] [facility] [address] Care Team Providers Care Business Intelligence Administrator Name Role Phone Raymundo Wu MD Primary Care Provider Beatris Vivar Unavailable [phone] Allergies Allergen (clinical drug ingredient) Drug/Non Drug Allergy documented on EMR Reaction Allergy Type Onset Date Status shrimp allergenic extract Shrimp (Diagnostic) gout Drug Allergy Active Reason For Referral No Information Medications Medication SIG (Take, Route, Frequency, Duration) Notes Start Date End Date Status Allopurinol 300 MG 1 tablet Orally Once a day Active Aspirin Active Atorvastatin Calcium 10 MG 1 tablet Oral ly Once a day Active Metoprolol & Diet Manage Prod Active predniSONE 20 MG 1 tablet Orally Once a day Active Omeprazole Active Voltaren 1 % as directed to right heel 4x daily 07/16/2024 Active Social History Tobacco Use: Social History [...] Notes Problem Juvenile osteochondrosis of the foot (810386852) 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 Vital Signs Blood pressure diastolic 80 mm Hg 09/26/2024 Height 5ft9in in 09/26/2024 Blood pressure systolic 121 mm Hg 09/26/2024 Weight 230 lbs 09/26/2024 BMI 33.96 kg/m2 09/26/2024 Encounters Encounter Location Date Provider Diagnosis [facility] [address] 07/16/2024 Beatris Dykes Achilles tendinitis of right lower extremity M76.61 ; Pain of right heel M79.671 ; 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 ; Acquired Blu's deformity of right heel M92.61 and Short Achilles tendon (acquired), 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 [facility] [address] 09/26/2024 Beatris Dykes Achilles tendinitis of right lower extremity M76.61 ; Pain of right heel M79.671 ; 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61) 09/26/2024 Exostosis of right posterior calcaneus (ICD-10 - M77.31) 07/16/2024 Exostosis of right posterior calcaneus (ICD-10 - M77.31) 07/16/2024 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.61) 09/26/2024 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.61) 07/16/2024 Short Achilles tendon (acquired), right ankle (ICD-10 - M67.01) 09/26/2024 Short Achilles tendon (acquired), right ankle (ICD-10 - M67.01) Plan Of Treatment Pending Test Test Name Order Date X ray : Foot, right 3V 07/16/2024 Insurance Providers Payer Name Payer Address Payer Phone Subscriber Number Group Number Insured Name Patient Relationship to Insured Coverage Start Date Coverage End Date Medicare National Govt Svcs Inc [address] [place] [address] [id number] Stefan Fox Self - patient is the insured [employer] [address] [place] [address] [id number] Stefan Fox Self - patient is the insured Medical (General) History Medical History History ICD Code CAD (Cholesterol) Gout High Blood Pressure Mumps Measles Chicken pox Bone implants/screws Surgical History Surgery Date(Month/Year) tonsillectomy 1950 appendectomy 1952 knee replacement 2012 cyst removal 2020
== END 2025-01-08 15:54 | disposition home or self-care (01) ==
LOC: HO.HMCHD 14:44
PROVIDERS: PCP Internal Medicine; Visit Provider Internal Medicine
DX: I10 Essential (primary) hypertension (principal); R05.9 Cough, unspecified; Z00.00 Encounter for general adult medical examination without abnormal findings

== ENCOUNTER → 2025-01-08 14:44 | Outpatient (BNVA) | payer MEDICARE, SELFPAY | PROVIDERS: PCP Internal Medicine; Visit Provider Internal Medicine | DX: I10 Essential (primary) hypertension (principal); R05.9 Cough, unspecified | CPT/HCPCS: 96127; 99202 ==

== ENCOUNTER 2025-01-14 09:31 | Outpatient (REF) | payer MEDICARE, SELFPAY ==
--- NOTE | ~2025-01-14 | XR_ITS ---
EXAMINATION: XR CHEST CLINICAL INFORMATION: R05.9 - Cough, unspecified COMPARISON: February 21, 2023 TECHNIQUE: 2 views of the chest were obtained. FINDINGS: No consolidation, pleural effusion or pneumothorax. Poor inspiration. Pulmonary reticular pattern. Cardiomediastinal silhouette size is normal. Calcified plaque thoracic aortic arch. Multilevel thoracic and upper lumbar spondylosis. XR/XR chest 2V IMPRESSION: No acute airspace disease. Electronically signed by: Abdullahi Childs MD 01/15/2025 08:33 AM EDT
[2025-01-14 10:18] LABS: Hematocrit 43.1 % (42.0-52.0); Hemoglobin 14.5 g/dl (14.0-18.0); Mean Corpuscular HGB Conc 33.6 g/dl (31.0-36.0); Mean Corpuscular Hemoglobin 32.2 pg (27.0-33.0); Mean Corpuscular Volume 95.6 fL (80.0-98.0); Mean Platelet Volume 8.9 fL (9.4-12.4); Platelet Count 185 X10*3/uL (160-400); Red Blood Count 4.51 X10*6/uL (4.60-5.80); Red Cell Distribution Width 13.1 % (11.0-16.0); White Blood Count 8.4 X10*3/uL (4.8-10.8)
--- OUTSIDE RECORDS SUMMARY | 2025-01-14 10:30 | XMS_ITS ---
Author Organization [facility] Address [address] [place] [address] Care Team Providers Care Partition Assembler Name Role Phone Raymundo Wu MD Primary Care Provider Beatris Vivar Unavailable [phone] Allergies Allergen (clinical drug ingredient) Drug/Non Drug [...] 07/16/2024 Encounters Encounter Location Date Provider Diagnosis [facility] [address] [place] [address] 07/16/2024 Beatris Dykes Achilles tendinitis of right [...] Stefan FOX SDOB:[birth year] (79 yo M)Acc No.[id number]:07/16/2024 Progress Notes Patient:?Stefan Fox Provider:?Beatris Dykes DPM :1945???Age:79 Y???Sex:Male Jose Guadalupe e:07/16/2024 Address:[address] [place] [address] [phone] Pcp:Ryamundo Wu MD Subjective: * Chief Complaints: * [...] horseback riding/. ?Marital status: . 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 * Medications:?TakingOmeprazol e predniSONE 20 MG [...] with: RICE THERAPY.pdf (RICE THERAPY.pdf)?? * Procedure Codes:?88448 X-RAY EXAM OF RIGHT FOOT 3V, Modifiers: [...] Interfil injection therapy, as well as surgical Lincoln/Calcanectomy- tendon debridement surgical procedures if needed. Recommendations [...] painful condition.?Podiatric Surgery Counseling:?Surgical procedures such as Lincoln vs Exostectomy with Partial calcanectomy and Achilles [...] Dykes DPM Date:?1 Generated for Igori ng/Gina/eTransmitting on:?01/14/2025 10:29 AM EDT History and Physical Notes * HPI [...]
--- OUTSIDE RECORDS SUMMARY | 2025-01-14 10:30 | XMS_ITS | Patient Health Record ---
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 Vital Signs Blood pressure diastolic 80 mm Hg 09/26/2024 Height 5ft9in in 09/26/2024 Blood pressure systolic 121 mm Hg 09/26/2024 Weight 230 lbs 09/26/2024 BMI 33.96 kg/m2 09/26/2024 Encounters Encounter Location Date Provider Diagnosis [facility] [address] 07/16/2024 Beatris Dykes Achilles tendinitis of right lower extremity M76.61 ; Pain of right heel M79.671 ; 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 ; Acquired Blu's deformity of right heel M92.61 and Short Achilles tendon (acquired), 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 [facility] [address] 09/26/2024 Beatris Dykes Achilles tendinitis of right [...] Inc [address] [place] [address] [id number] Stefan Fox Self - patient is the insured [employer] [address] [place] [address] [id number] Stefan Fox Self - patient is the insured Medical (General) History Medical History History ICD Code CAD (Cholesterol) Gout High Blood Pressure Mumps Measles Chicken pox Bone implants/screws Surgical History Surgery Date(Month/Year) tonsillectomy 1950 appendectomy 1952 knee replacement 2012 cyst removal 2020
--- OUTSIDE RECORDS SUMMARY | 2025-01-14 10:30 | XMS_ITS ---
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 Vital Signs Height 5ft9in in 09/26/2024 Weight 230 lbs 09/26/2024 BMI 33.96 kg/m2 09/26/2024 Blood pressure systolic 121 mm Hg 09/26/19 25 Blood pressure diastolic 80 mm Hg 025 Encounters Encounter Location Date Provider Diagnosis [facility] [place] [address] [place] [address] 09/26/2024 Beatris Dykes Achilles tendinitis of right [...] MARK Stefan SDOB:[birth year] (79 yo M)Acc No.[id number]:09/26/2024 Progress Note Patient:?Stefan FOX Provider:?Beatris Dykes DPM :1945???Age:79 Y???Sex:Male Jose Guadalupe e:09/26/2024 Address:[address] [place], [place] [id number] Pcp:Raymundo Wu MD Subjective: * Chief Complaints: [...] Dykes DPM Date:?0 09/26/2024 Generated for Mignon ontiveros/Gina/Chanellesmitting on:?01/14/2025 10:30 AM EDT History and Physical Notes * [...]
[2025-01-14 10:59] LABS: Anion Gap 13 (12-20); Blood Urea Nitrogen 21 mg/dL (9-16); Calcium 9.2 mg/dL (8.4-10.2); Carbon Dioxide 26 mmol/L (22-29); Chloride 108 mmol/L (96-108); Cholesterol 166 mg/dL (<200); Estimated Glomerular Filt Rate > 60; Glucose Random 106 mg/dL (60-115); HDL Cholesterol 59 mg/dL (>40); LDL Cholesterol Calculated 81 mg/dL (<100); Potassium 3.8 mmol/L (3.3-5.1); Sodium 143 mmol/L (135-145); Triglycerides 130 mg/dL (<150)
[2025-01-14 11:13] LABS: Thyroid Stimulating Hormone 1.55 uIU/mL (0.32-4.0)
== END 2025-01-14 09:32 | disposition home or self-care (01) ==
LOC: HO.LAB 09:31
PROVIDERS: PCP Internal Medicine; Visit Provider Internal Medicine
DX: I10 Essential (primary) hypertension (principal); R05.9 Cough, unspecified
CPT/HCPCS: 36415; 71046; 80048; 80061; 84443; 85027

== ENCOUNTER → 2025-01-14 09:50 | Outpatient (BNV) | payer MEDICARE, SELFPAY | PROVIDERS: PCP Internal Medicine; Visit Provider Radiology Diagnostic Radiology | DX: R05.9 Cough, unspecified (principal) | CPT/HCPCS: 71046 ==

== ENCOUNTER 2025-01-15 09:00 | Outpatient (REF) | payer MEDICARE, SELFPAY ==
--- OUTSIDE RECORDS SUMMARY | 2025-01-15 09:45 | XMS_ITS | Patient Health Record ---
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 Vital Signs Blood pressure diastolic 80 mm Hg 09/26/2024 Height 5ft9in in 09/26/2024 Blood pressure systolic 121 mm Hg 09/26/2024 Weight 230 lbs 09/26/2024 BMI 33.96 kg/m2 09/26/2024 Encounters Encounter Location Date Provider Diagnosis [facility] [address] 07/16/2024 Beatris Dykes Achilles tendinitis of right lower extremity M76.61 ; Pain of right heel M79.671 ; 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 ; Acquired Blu's deformity of right heel M92.61 and Short Achilles tendon (acquired), 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 [facility] [address] 09/26/2024 Beatris Dykes Achilles tendinitis of right [...] Inc [address] [place] [address] [id number] Stefan Fox Self - patient is the insured [employer] [address] [place] [address] [phone] [id number] Stefan Fox Self - patient is the insured Medical (General) History Medical History History ICD Code CAD (Cholesterol) Gout High Blood Pressure Mumps Measles Chicken pox Bone implants/screws Surgical History Surgery Date(Month/Year) tonsillectomy 1950 appendectomy 1952 knee replacement 2012 cyst removal 2020
--- OUTSIDE RECORDS SUMMARY | 2025-01-15 09:45 | XMS_ITS ---
Author Organization [facility] Address [address] [place] [address] Care Team Providers Care Business Manager [employer] Name Role Phone Raymundo Wu MD Primary Care Provider Beatris Vivar Unavailable [phone] Allergies Allergen (clinical drug ingredient) Drug/Non Drug [...] 07/16/2024 Encounters Encounter Location Date Provider Diagnosis [facility] [address] [place] [address] 07/16/2024 Beatris Dykes Achilles tendinitis of right [...] Stefan FOX SDOB:[birth year] (79 yo M)Acc No.[id number]:07/16/2024 Progress Notes Patient:?Stefan Fox Provider:?Beatris Dykes DPM :1945???Age:79 Y???Sex:Male Jose Guadalupe e:07/16/2024 Address:[address] [place] [address] [phone] Pcp:Raymundo Wu MD Subjective: * Chief Complaints: [...] yes, horseback riding/. ?Marital status: . 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 * Medications:?TakingOmeprazol e predniSONE 20 MG [...] with: RICE THERAPY.pdf (RICE THERAPY.pdf)?? * Procedure Codes:?47625 X-RAY EXAM OF RIGHT FOOT 3V, Modifiers: [...] Interfil injection therapy, as well as surgical [place]/Calcanectomy- tendon debridement surgical procedures if needed. Recommendations [...] painful condition.?Podiatric Surgery Counseling:?Surgical procedures such as [place] vs Exostectomy with Partial calcanectomy and Achilles [...] Provider:?Beatris Dykes DPM Date:?1 Generated for Igori weston/Gina/eTransmitting on:?01/15/2025 09:44 AM EDT History and Physical Notes * [...]
--- OUTSIDE RECORDS SUMMARY | 2025-01-15 09:45 | XMS_ITS ---
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 Vital Signs Height 5ft9in in 09/26/2024 Weight 230 lbs 09/26/2024 BMI 33.96 kg/m2 09/26/2024 Blood pressure systolic 121 mm Hg 09/26/19 25 Blood pressure diastolic 80 mm Hg 025 Encounters Encounter Location Date Provider Diagnosis [facility] [place] [address] [place] [address] 09/26/2024 Beatris Dykes Achilles tendinitis of right [...] MARK Stefan SDOB:[birth year] (79 yo M)Acc No.[id number]:09/26/2024 Progress Note Patient:?Stefan FOX Provider:?Beatris Dykes DPM :1945???Age:79 Y???Sex:Male Jose Guadalupe e:09/26/2024 Address:[address] [place], [place] [id number] Pcp:Raymundo Wu MD Subjective: * Chief Complaints: [...] DPM Date:?0 09/26/2024 Generated for Mignon ontiveros/Gina/Breeitting on:?01/15/2025 09:45 AM EDT History and Physical Notes * [...]
[2025-01-15 09:57] LABS: Appearance Urine Clear; Color Urine Yellow; Glucose Urine UA Negative (Negative); Leukocyte Esterase Urine Negative (Negative); Nitrite Urine Negative (Negative); Specific Gravity - Urine >= 1.030 (1.005-1.025); Urine Blood Negative (Negative); Urine Ketones Trace mg/dL (Negative); Urine Protein Trace mg/dL (Neg-Trace)
== END 2025-01-15 09:01 | disposition home or self-care (01) ==
LOC: HO.10HDLNP 09:00
PROVIDERS: Visit Provider Internal Medicine
DX: I10 Essential (primary) hypertension (principal)
CPT/HCPCS: 81003

== ENCOUNTER 2025-06-11 10:24 | Outpatient (REF) | payer MEDICARE, SELFPAY ==
--- OUTSIDE RECORDS SUMMARY | 2025-06-11 12:44 | XMS_ITS | Patient Health Record ---
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 Vital Signs Blood pressure diastolic 80 mm Hg 09/26/2024 Height 5ft9in in 09/26/2024 Blood pressure systolic 121 mm Hg 09/26/2024 Weight 230 lbs 09/26/2024 BMI 33.96 kg/m2 09/26/2024 Encounters Encounter Location Date Provider Diagnosis [facility] [address] 07/16/2024 Beatris Dykes Achilles tendinitis of right lower extremity M76.61 ; Pain of right heel M79.671 ; 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 ; Acquired Blu's deformity of right heel M92.61 and Short Achilles tendon (acquired), 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 [facility] [address] 09/26/2024 Beatris Dykes Achilles tendinitis of right [...] Inc [address] [place] [address] [id number] Stefan Fox Self - patient is the insured [employer] [address] [place] [address] [phone] [id number] Stefan Fox Self - patient is the insured Medical (General) History Medical History History ICD Code CAD (Cholesterol) Gout High Blood Pressure Mumps Measles Chicken pox Bone implants/screws Surgical History Surgery Date(Month/Year) tonsillectomy 1950 appendectomy 1952 knee replacement 2012 cyst removal 2020
--- OUTSIDE RECORDS SUMMARY | 2025-06-11 12:44 | XMS_ITS | Patient Health Record ---
Author Organization [facility] Address [address] [place] [address] Care Team Providers Care Cracker Dough Mixer Name Role Phone Bryce (RETIRED) Raymundo HARRELL Primary Care Provide r Phong Quick Jr Unavailable Reason For Referral No Information Medications Medication SIG (Take, Route, Frequency, Duration) Notes Start Date End Date Status Aspir-81 81 MG 1 tablet Orally Once a day Active Metoprolol Succinate ER 25 MG TAKE 1 TABLET BY MOUTH EVERY DAY Oral for 90 Active Allopurinol 300 MG 1 tablet Orally Once a day Active MiraLax (colon prep) 8.3 ounce ((238) grams mixed with Gatorade or Crystal Light orally begin at 5:00 p.m. the day before the procedure for 1 day 04/29/2020 Active Atorvastatin Calcium 40 MG 1 tablet Oral ly Once a day Active Immunizations Vaccine Route Administration Date Status Comme nts Influenza Unknown 04/29/2020 Refused Problems Problem Type SNOMED Code ICD Code Onset Dates Problem Status W/U Status Risk Notes Problem [id number] Colon cancer screening (Z12.11) Active confirmed Problem [id number] long term (current) use of aspirin (Z79.82) Active confirmed Plan Of Treatment Future Test Test Name Order Date COLONOSCOPY 10/09/2014 COLONOSCOPY 04/29/2020 Insurance Providers Payer Name Payer Address Payer Phone Subscriber Number Group Number Insured Name Patient Relationship to Insured Coverage Start Date Coverage End Date MEDICARE [place] [address] [place] [address] [id number] LISBET FLORES Self - patient is the insured MED[employer] ATTN CLAIMS [address] [place] [address] [id number] LISBET FLORES Self - patient is the insured Medical (General) History Medical History History ICD Code gout elevated cholesterol Denies DC,DM,CVA,Lung disease,renal dise ase ventricular tachycardia Surgical History Surgery Date(Month/Year) appendectomy tonsillectomy right knee replacement right knee arthroscopy x2
--- OUTSIDE RECORDS SUMMARY | 2025-06-11 12:45 | XMS_ITS | Clinical Summary ---
Author Organization [facility] Address [address] [place], [place] [id number] Phone Care Team Providers Care Rent Collector Name Role Phone Raymundo Wu MD Primary Care Provider Social History Tobacco Use Types Packs/Day Years Used Date Smoking Tobacco: Never Assessed Education Answer Date Recorded Are you interested in more education? Not on kush e 01/11/2024 Are you concerned about learning? Not on file 01/11/2024 No 01/11/2024 No 01/11/2024 Digital Access Answer Date Recorded No 01/11/2024 No 01/11/2024 Reliable internet access at home? Not on file 01/11/2024 Device with a working camera? Not on file Sex and Gender Information Value Date Recorded Sex Assigned at Not on file Legal Sex Male 9:53 AM EDT Gender Identity Not on file Sexual Orientation Not on file Plan of Treatment Not on file Medical Devices Not on file [place] [id number] [employer] MEDEX SUPPLEMENT MEDICARE PART A & B [employer] MEDEX SUPPLEMENT MEDICARE PART A & B [employer] MEDEX SUPPLEMENT [employer] MEDEX SUPPLEMENT MEDICARE PART A & B Member Subscriber Plan / Payer ([facility] 03/25/2012-Present) Name:Stefan Fox Member ID:[id number] Relation to Subscriber:Self Name:Stefan Fox Subscriber ID:[id number] Payer ID:[id number] Group ID:Not on file Type:Medicare Address: [employer] [address] [place] [phone] [employer] MEDEX SUPPLEMENT MEDICARE PART A & B [employer] MEDEX SUPPLEMENT Care Teams Rent Collector Relationship Specialty Start Date End Date Raymundo Wu MD [address] [place] [address] [place] [address] PCP - General Internal Medicine 01/11/24 Additional Source Comments The information contained in this document represents components of the legal health record. It is not the complete legal health record.[facility]
[2025-06-11 13:15] LABS: Hematocrit 42.0 % (42.0-52.0); Hemoglobin 14.0 g/dl (14.0-18.0); Mean Corpuscular HGB Conc 33.3 g/dl (31.0-36.0); Mean Corpuscular Hemoglobin 31.5 pg (27.0-33.0); Mean Corpuscular Volume 94.6 fL (80.0-98.0); NRBC Abs Auto 0.000 X10*3/uL (0.0-0.012); NRBC Pct Auto 0.0 /100WBC (0.0-0.2); Platelet Count 185 X10*3/uL (160-400); Red Blood Count 4.44 X10*6/uL (4.60-5.80); White Blood Count 10.1 X10*3/uL (4.8-10.8)
== END 2025-06-11 10:25 | disposition home or self-care (01) ==
LOC: HO.HMGCLDS 10:24
PROVIDERS: Internal Medicine; PCP Internal Medicine; Visit Provider Psychiatry & Neurology Neurology
DX: R53.1 Weakness (principal)
CPT/HCPCS: 36415; 85027

== ENCOUNTER → 2025-08-12 12:47 | Outpatient (REF) | payer MEDICARE, SELFPAY ==
--- NOTE | 2025-08-12 12:50 | CA_ITS ---
Transthoracic Echocardiogram Patient (Last, First, Middle): Stefan Fox S Gender: M Date of : 1945 Age: 80 Procedure Date: 08/12/2025 Procedure Type: Transthoracic Echocardiogram Location: OP Height: 175.26 cm Weight: 102.06 kg BSA: 2.17 m2 Heart Rate: bpm BP: 130 / 60 mmHg Cutter Woodwind Reeds: TO Referring MD: Carole SANDERSON Symptoms: R05.3 - Chronic cough Study Quality: Adequate ECG Rhythm: Sinus Conclusions: - The left ventricular systolic function is normal. The calculated ejection fraction is 61% by biplane method. - Possibly posterior mitral leaflet prolapse, but not well seen. Suspect moderate mitral regurgitation, eccentric jet. Findings Left Ventricle Normal left ventricular cavity size. There is mildly increased left ventricular wall thickness. The left ventricular systolic function is normal. The calculated ejection fraction is 61% by biplane method. There is no evidence of regional wall motion abnormalities. Evidence suggests grade I (mild) diastolic dysfunction. Right Ventricle Normal right ventricular cavity size and systolic function. Atria The left atrium is severely dilated. The right atrium is normal in size. Aortic Valve There is a normal trileaflet aortic valve. There is mild calcification of the aortic valve. There is no aortic valve stenosis. There is trace (trivial) aortic valve regurgitation. Mitral Valve There is mild anterior and posterior mitral leaflet thickening. There is no mitral valve stenosis. Possibly posterior mitral leaflet prolapse, but not well seen. Suspect moderate mitral regurgitation, eccentric jet. Pulmonic Valve The pulmonic valve is likely normal. Tricuspid Valve There is trace tricuspid valve regurgitation. There is no evidence of pulmonary hypertension. Great Vessels The asc aorta and aortic arch are normal in size. Venous The inferior vena cava is normal in size and collapses greater than 50% with inspiration. Pericardium/Pleural There is no evidence of pericardial effusion. Prior Study Comparison No prior study available for comparison. Measurements 2D Linear Measurements LVOT Diam: 2.50 3.0+(-)1.3 cm 2D Systolic Function EF 4C: 62.30 >55% EF 2C: 61.90 >55% EF BiP: 60.60 >55% Mitral Valve MV Pk E: 0.76 MV PK A: 0.80 MV Decel Time: 253.00 E/A: 1.00 E'Lateral: 4.24 E'Medial: 4.57 E/E' Med: 16.60 E/E' Lat: 17.90 PHT: 74.00 MVA PHT: 2.97 Decel Ada: 2.99 Aortic Valve AoV Pk Tristan: 1.68 AoV Mn Tristan: 1.15 AoV VTI: 0.35 AoV Pk Grad: 11.00 Aov Mn Grad: 6.00 FAVIOLA Cont.VTI: 4.28 AI Pk Tristan: 3.98 AI Ada: 1.26 LVOT LVOT Pk Tristan: 1.21 LVOT Mn Tristan: 0.80 LVOT VTI: 0.31 LVOT Pk Grad: 6.00 LVOT Mn Grad: 3.00 LVOT Diam: 2.50 LVOT Area: 4.91 Diastolic Function MV Pk E: 0.76 MV Pk A: 0.80 E/A: 1.00 E'Medial: 4.57 E/E' Med: 16.60 E' Laterial: 4.24 E/E' Lat: 17.90 Tricuspid Valve TR Pk Tristan: 2.42 TR Pk Grad: 23.00 RA Press: 8.00 RVSP: 31.00 Great Vessels Aorta Sinus of Valsalva: 3.73 2.0-3.[address] Ridge: 2.70 1.7-3.4 cm Ao Asc: 3.60 2.1-3.4 cm Ao Arch: 3.30 Updated in Other Vendor System with Status of Final Ryland Aragon MD electronically signed on 08/13/2025 3:26:02 PM with status of Final
--- OUTSIDE RECORDS SUMMARY | 2025-08-13 04:09 | XMS_ITS | Clinical Summary ---
Author Organization [facility] Address [address] [place], [place] [phone] Phone Care Team Providers Care Utilization Engineer Name Role Phone Raymundo Wu MD Primary [...] [place] [id number] [employer] MEDEX SUPPLEMENT MEDICARE PART A & B [employer] [place] MEDICARE PART A & B [place] Member Subscriber Plan / Payer ([facility] 03/25/2009-Present) Name:Stefan Fox Relation to Subscriber:Self Name:Stefan Fox Payer ID:[id number] (NAIC) Type:Indemnity Address: [address] [place] [address] [place] SU[place] Member Subscriber Plan / Payer ([facility] 03/25/2009-Present) Name:Miles Foxmond Relation to Subscriber:Self Name:Stefan Fox Payer ID:[id number] (NAIC) Type:Indemnity Address: [address] [place] [address] MEDICARE PART A & B Member Subscriber Plan / Payer ([facility] 03/25/2012-Present) Name:Stefan Fox Member ID:[id number] Relation to Subscriber:Self Name:Stefan Fox Subscriber ID:[id number] Payer ID:[id number] Group ID:Not on file Type:Medicare Address: [employer] [address] [place] [phone] [place] MEDICARE PART A & B [place] [place] Care Teams Utilization Engineer Relationship Specialty Start Date End Date Raymundo Wu MD [address] [place] [address] [place] [address] PCP - General Internal Medicine 01/11/24 Additional Source Comments The information contained in this document represents components of the legal health record. It is not the complete legal health record.[facility]
== END ==
LOC: HO.CARD 12:47
PROVIDERS: PCP Physician Assistant Medical; Visit Provider Physician Assistant Medical
DX: R05.3 Chronic cough (principal); R06.02 Shortness of breath
CPT/HCPCS: 93306

== ENCOUNTER → 2025-08-12 12:50 | Outpatient (BNV) | payer MEDICARE, SELFPAY | PROVIDERS: PCP Physician Assistant Medical; Visit Provider Internal Medicine | DX: I51.7 Cardiomegaly (principal); R06.02 Shortness of breath | CPT/HCPCS: 93306 ==